=== PATIENT | male | born 1955 | race American Indian/Alaskan Native ===

== ENCOUNTER 2020-09-21 22:13 | Inpatient (IN) | payer MEDICAID ==
[~2020-09-21] VITALS: Ht 175.3 cm; Wt 139.7 kg
[2020-09-21] MEDS ORDERED: ipratropium/albuterol 3ml nebule NEB ONE (22:20)
[2020-09-21] MEDS ORDERED: methylPREDNISolone sod succ 125mg/2ml vial IV ONE (22:20)
[2020-09-21 22:47] LABS: BASOPHILS % (AUTO) 0.2 % (0-1); EOSINOPHILS % (AUTO) 0 % (0-6); HEMATOCRIT 40.2 % (42.0-52.0); HEMOGLOBIN 13.4 g/dl (14.0-17.9); LYMPHOCYTES # (AUTO) 1.3 X10'3 (1.1-4.8); LYMPHOCYTES % (AUTO) 6.8 % (21-51); MEAN CORPUSCULAR HEMOGLOBIN 32.1 PG (27.0-31.0); MEAN CORPUSCULAR HGB CONC 33.4 g/dL (33.0-36.5); MONOCYTES # (AUTO) 1.3 X10'3 (0-0.9); MONOCYTES % (AUTO) 6.5 % (2-12); NEUTROPHILS # (AUTO) 16.8 X10'3 (1.8-7.7); NEUTROPHILS % (AUTO) 86.5 % (42-75); PLATELET COUNT 126 X10'3 (140-440); RED BLOOD COUNT 4.19 X10'6 (4.70-6.10); RED CELL DISTRIBUTION WIDTH 15.3 % (11.5-14.5); WHITE BLOOD COUNT 19.4 X10'3 (4.5-11.0)
[2020-09-21] MEDS ORDERED: CefTRIAXone/D5W-Rocephin 1gm 50 ML IV ONE (23:05)
[2020-09-21] MEDS ORDERED: acetaminophen 325mg tablet PO ONE (23:05)
[2020-09-21] MEDS ORDERED: azithromycin/NS 500mg/250ml 250 ML IV ONE (23:05)
[2020-09-21] MEDS ORDERED: normal saline 1000ml 1,000 ML IV ONE (23:05)
[2020-09-21] MEDS ORDERED: albuterol 2.5 MG/3 ML nebule CONTNEB PRN (23:05)
[2020-09-21 23:21] LABS: ALANINE AMINOTRANSFERASE 120 U/L (12-78); ALBUMIN 2.8 G/DL (3.4-5.0); ALBUMIN/GLOBULIN RATIO 0.6 (1.1-1.5); ALKALINE PHOSPHATASE 121 IU/L (46-116); ANION GAP 20 (8-16); ASPARTATE AMINO TRANSFERASE 342 U/L (10-37); BILIRUBIN,TOTAL 2.1 MG/DL (0.1-1.0); BLOOD UREA NITROGEN 40 MG/DL (7-18); BUN/CREATININE RATIO 13.3 (5.4-32.0); CALCIUM 8.9 MG/DL (8.5-10.1); CHLORIDE 97 MMOL/L (99-107); GLUCOSE 224 MG/DL (70-104); POTASSIUM 4.7 MMOL/L (3.5-5.1); SODIUM 133 MMOL/L (135-145); TOTAL CARBON DIOXIDE 15.9 MMOL/L (24-32); TOTAL PROTEIN 7.8 G/DL (6.4-8.2); eGFR 21 ML/MIN
[2020-09-21] MEDS ORDERED: aspirin 81mg tab.chew PO ONE (23:30)
[2020-09-21 23:54] LABS: PLATELET ESTIMATE DECREASED; TOTAL CELLS COUNTED 100
[2020-09-22] VITALS (12 sets, daily range): BP systolic 89–115; BP diastolic 44–67
[2020-09-22] MEDS ORDERED: metroNIDAZOLE-Flagyl 500mg/NS 100 ML IV STA (00:35)
[2020-09-22] MEDS ORDERED: heparin 10,000 units/1 ML INJ IV ONE ×4 (00:35→15:05)
[2020-09-22] MEDS ORDERED: heparin 10,000 units/1 ML INJ IV PRN ×2 (00:35→15:05)
[2020-09-22] MEDS ORDERED: normal saline 1000ml 1,000 ML IV ONE (00:35)
[2020-09-22] MEDS ORDERED: VANCOMYCIN 1,500MG inj. 1,500 MG in normal saline 500ml IV soln 300 ML IV ONE (00:46)
[2020-09-22 00:53] LABS: CLARITY,URINE CLOUDY (Clear); COLOR,URINE YELLOW (Yellow); GLUCOSE, URINE 100 mg/dl (Neg); KETONES,URINE TRACE mg/dl (Neg); LEUKOCYTE ESTERASE ,URINE NEGATIVE (Neg); NITRITES, URINE NEGATIVE (Neg); OCCULT BLOOD,URINE LARGE (Neg); PROTEIN,URINE 100 mg/dl (Neg); UROBILINOGEN,URINE >=8.0 E.U/dL (0.2-1.0)
[2020-09-22 00:54] LABS: UA COLLECTION TYPE URINAL
[2020-09-22 00:56] LABS: PARTIAL THROMBOPLASTIN TIME 31 SECONDS (22-32)
[2020-09-22 00:59] LABS: ABG BASE EXCESS -13.2 mmol/L (-2.0-2.0); ABG HCO3 11.1 mmol/L (22.0-26.0); ABG OXYGEN SATURATION 95.2 % (94-97); ABG PCO2 (T) 22.7 mmHg (35.0-48.0); ABG PO2 (T) 83.5 mmHg (75.0-100.0); FCOHb 0.5 % (0.0-3.9); FMetHb 0.1 % (0.0-1.5); FO2Hb 94.6 % (94-97); PATIENT TEMPERATURE 36.8; TOTAL HEMOGLOBIN 12.9 G/dl (14.0-18.0)
[2020-09-22 01:02] LABS: AMORPHOUS URATES 2+; BACTERIA,URINE FEW /HPF (Neg); COARSE GRANULAR CAST 0-3 /LPF (NEGATIVE); RBC,URINE 0-2 /HPF (0-2); SQUAMOUS EPITHELIAL CELL,UR FEW /LPF (FEW); WBC,URINE 0-4 /HPF (0-4)
[2020-09-22] MEDS ORDERED: NORepinephrine inj. 8 MG in dextrose 5%-water 242 ML IV SCH (01:05)
[2020-09-22] MEDS: NORepinephrine 8mg/ 250ml NS 250 ML IV SCH ×3 (01:06→22:06)
[2020-09-22] MEDS: heparin 25,000 UNIT/250ml bag 250 ML IV SCH (01:08)
--- NOTE | 2020-09-22 01:08 | NUR ---
PT'S SON EARNESTINE [phone], PT'S EX AZUCENA [phone]
--- NOTE | 2020-09-22 02:12 | NUR ---
PT STABLE. SON AT BEDSIDE.
[2020-09-22 07:41] LABS: URINE AMPHETAMINE SCREEN POSITIVE (Neg); URINE BARBITUATE SCREEN NEGATIVE (Neg); URINE BENZODIAZEPINES SCREEN NEGATIVE (Neg); URINE CANNABINOID SCREEN NEGATIVE (Neg); URINE COCAINE SCREEN NEGATIVE (Neg); URINE METHADONE SCREEN NEGATIVE (Neg); URINE OPIATE SCREEN NEGATIVE (Neg); URINE PHENCYCLIDINE SCREEN NEGATIVE (Neg)
[2020-09-22 08:01] LABS: PARTIAL THROMBOPLASTIN TIME 69 SECONDS (22-32)
[2020-09-22] MEDS ORDERED: acetaminophen 325mg tablet PO PRN ×2 (08:05)
[2020-09-22] MEDS ORDERED: potassium Cl 40MEQ/1/2NS 520ml 520 ML IV PRN ×2 (08:05)
[2020-09-22] MEDS ORDERED: NOREPINEPHRINE BITARTRATE/D5W 250 ML IV PRN (08:05)
[2020-09-22] MEDS ORDERED: LIDOcaine 2% 10ml TOPICAL JELLY (Urojet) TP ONE (08:05)
[2020-09-22] MEDS ORDERED: ondansetron/PF 4mg/2ml inj IV PRN (08:05)
[2020-09-22] MEDS ORDERED: potassium Cl 20 mEq SR tablet PO PRN ×2 (08:05)
[2020-09-22] MEDS ORDERED: potassium Cl 40MEQ/250ML bag 270 ML IV PRN ×2 (08:05)
[2020-09-22] MEDS ORDERED: heparin 25,000 UNIT/250ml bag 250 ML IV SCH ×2 (08:05→15:05)
[2020-09-22] MEDS: normal saline 1000ml 1,000 ML IV SCH ×2 (08:42→22:23)
[2020-09-22] MEDS: famotidine/PF 10 mg/ml inj IV SCH ×2 (08:43→20:36)
[2020-09-22 09:15] LABS: TOTAL PROTEIN,URINE RANDOM 251.7 MG/DL
[2020-09-22] MEDS ORDERED: NATE120T6 PO (09:19)
[2020-09-22 09:42] LABS: BASOPHILS % (AUTO) 0 % (0-1); EOSINOPHILS % (AUTO) 0.1 % (0-6); HEMATOCRIT 37.7 % (42.0-52.0); HEMOGLOBIN 12.6 g/dl (14.0-17.9); LYMPHOCYTES # (AUTO) 0.5 X10'3 (1.1-4.8); LYMPHOCYTES % (AUTO) 2.5 % (21-51); MEAN CORPUSCULAR HEMOGLOBIN 31.8 PG (27.0-31.0); MEAN CORPUSCULAR HGB CONC 33.3 g/dL (33.0-36.5); MEAN CORPUSCULAR VOLUME 95.3 FL (78-98); MEAN PLATELET VOLUME 8.2 FL (7.4-10.4); MONOCYTES # (AUTO) 0.9 X10'3 (0-0.9); MONOCYTES % (AUTO) 4.7 % (2-12); NEUTROPHILS # (AUTO) 18.3 X10'3 (1.8-7.7); NEUTROPHILS % (AUTO) 92.7 % (42-75); PLATELET COUNT 73 X10'3 (140-440); RED BLOOD COUNT 3.95 X10'6 (4.70-6.10); RED CELL DISTRIBUTION WIDTH 15.5 % (11.5-14.5); WHITE BLOOD COUNT 19.7 X10'3 (4.5-11.0)
[2020-09-22 09:48] LABS: UA EOSINOPHILS NO EOS /HPF
[2020-09-22] MEDS: albuterol 2.5 MG/3 ML nebule NEB PRN (10:04)
[2020-09-22 10:06] LABS: ANISOCYTOSIS 1+; PLATELET ESTIMATE DECREASED; TOTAL CELLS COUNTED 100
[2020-09-22] MEDS ORDERED: SILD100T70 PO (10:50)
[2020-09-22] MEDS ORDERED: ARIP400S2 IM (10:50)
[2020-09-22] MEDS ORDERED: ALOG12.52 PO (10:50)
[2020-09-22] MEDS ORDERED: DOCU-342 PO (10:50)
[2020-09-22] MEDS ORDERED: CHOL500050 PO (10:50)
[2020-09-22] MEDS ORDERED: QUET100T34 PO (10:50)
[2020-09-22] MEDS ORDERED: LISI-790 PO (10:50)
[2020-09-22] MEDS ORDERED: ASPI-1397 PO (10:50)
[2020-09-22] MEDS ORDERED: NAPR-996 PO (10:50)
[2020-09-22] MEDS ORDERED: GABA300C PO ×2 (10:50)
[2020-09-22] MEDS ORDERED: DULA1.5P SQ (10:50)
[2020-09-22] MEDS ORDERED: ATOR20TA66 PO (10:50)
[2020-09-22] MEDS ORDERED: FAMO40TA8 PO (10:50)
[2020-09-22] MEDS ORDERED: METF-900 PO (10:50)
--- NOTE | 2020-09-22 11:58 | NUR ---
Dr Angulo and Dr Reuben foster
[2020-09-22] MEDS ORDERED: PERFLUTREN PROTEIN-A MICROSPHR (Optison) 0.22 MG/ML 3ML VIAL IV ONE (14:25)
[2020-09-22] MEDS ORDERED: Dulaglutide (Trulicity) 0.5 ML INJ SQ SCH (15:30)
[2020-09-22] MEDS ORDERED: non-formulary drug (Sildenafil Citrate 1 TAB) PO PRN (15:30)
[2020-09-22 16:50] LABS: LYMPHOCYTES # (AUTO) 0.4 X10'3 (1.1-4.8); MEAN CORPUSCULAR HEMOGLOBIN 32.4 PG (27.0-31.0)
[2020-09-22 16:52] LABS: BASOPHILS % (AUTO) 0.1 % (0-1); EOSINOPHILS % (AUTO) 0 % (0-6); HEMATOCRIT 39.3 % (42.0-52.0); LYMPHOCYTES % (AUTO) 2.7 % (21-51); MEAN PLATELET VOLUME 8.4 FL (7.4-10.4); MONOCYTES # (AUTO) 0.8 X10'3 (0-0.9); MONOCYTES % (AUTO) 5.3 % (2-12); NEUTROPHILS # (AUTO) 14.2 X10'3 (1.8-7.7); NEUTROPHILS % (AUTO) 91.9 % (42-75); PLATELET COUNT 75 X10'3 (140-440); RED BLOOD COUNT 4.01 X10'6 (4.70-6.10); RED CELL DISTRIBUTION WIDTH 15.7 % (11.5-14.5); WHITE BLOOD COUNT 15.4 X10'3 (4.5-11.0)
[2020-09-22] MEDS ORDERED: MESSAGE TO PHARMACY PO ONE (18:15)
[2020-09-22] MEDS ORDERED: glucagon, human recombinant 1mg kit SUBCUT PRN (18:15)
[2020-09-22] MEDS ORDERED: dextrose 50%-water 50ml dispensing syringe IV PRN ×2 (18:15)
[2020-09-22] MEDS ORDERED: dextrose ORAL solution 15 GM/59 ML bottle PO PRN ×2 (18:15)
--- NOTE | 2020-09-22 18:30 | NUR ---
Patient in room ICU 2044. I have received report from BRITTANY Pang and had the opportunity to ask questions and assume patient care. Patient is laying in bed restless and confused, trying to use his phone, I was able to redirect him and had him put phone away. I will continue to monitor.
[2020-09-22] MEDS: docusate sod 100mg capsule PO SCH ×2 (20:00)
[2020-09-22 20:36] LABS: BASOPHILS # (AUTO) 0.1 X10'3 (0-0.2); BASOPHILS % (AUTO) 0.5 % (0-1); EOSINOPHILS % (AUTO) 0 % (0-6); HEMOGLOBIN 13.4 g/dl (14.0-17.9); LYMPHOCYTES # (AUTO) 0.5 X10'3 (1.1-4.8); LYMPHOCYTES % (AUTO) 3.2 % (21-51); MEAN CORPUSCULAR HEMOGLOBIN 31.9 PG (27.0-31.0); MEAN CORPUSCULAR HGB CONC 33.5 g/dL (33.0-36.5); MEAN CORPUSCULAR VOLUME 95.3 FL (78-98); MEAN PLATELET VOLUME 8.4 FL (7.4-10.4); MONOCYTES # (AUTO) 0.7 X10'3 (0-0.9); MONOCYTES % (AUTO) 4.6 % (2-12); NEUTROPHILS # (AUTO) 13.2 X10'3 (1.8-7.7); NEUTROPHILS % (AUTO) 91.7 % (42-75); PLATELET COUNT 75 X10'3 (140-440); RED CELL DISTRIBUTION WIDTH 14.9 % (11.5-14.5); WHITE BLOOD COUNT 14.4 X10'3 (4.5-11.0)
[2020-09-22] MEDS: atorvastatin 20mg tablet PO SCH (20:36)
[2020-09-22] MEDS: gabapentin 300mg capsule PO SCH (20:36)
[2020-09-22] MEDS: quetiapine 100mg tablet PO SCH (20:39)
[2020-09-22] MEDS: insulin glargine (Lantus) pen - multi-dose SQ SCH (20:47)
[2020-09-22] MEDS: insulin Lispro (HumaLOG) vial - multi-dose SQ SCH (20:48)
[2020-09-22 21:03] LABS: ALANINE AMINOTRANSFERASE 155 U/L (12-78); ALBUMIN 2.4 G/DL (3.4-5.0); ALBUMIN/GLOBULIN RATIO 0.5 (1.1-1.5); ALKALINE PHOSPHATASE 94 IU/L (46-116); ANION GAP 18 (8-16); ASPARTATE AMINO TRANSFERASE 372 U/L (10-37); BLOOD UREA NITROGEN 57 MG/DL (7-18); BUN/CREATININE RATIO 21.4 (5.4-32.0); CALCIUM 7.7 MG/DL (8.5-10.1); CHLORIDE 101 MMOL/L (99-107); CREATININE 2.66 MG/DL (0.60-1.10); GLUCOSE 275 MG/DL (70-104); MAGNESIUM 1.5 MG/DL (1.5-2.4); PHOSPHORUS 6.7 MG/DL (2.3-4.5); POTASSIUM 5.5 MMOL/L (3.5-5.1); SODIUM 133 MMOL/L (135-145); TOTAL PROTEIN 6.9 G/DL (6.4-8.2); eGFR 24 ML/MIN
--- NOTE | 2020-09-22 21:04 | NUR ---
Patient in room ICU 2044. I have received report from Tiffanie SOTO and had the opportunity to ask questions and assume patient care.
[2020-09-22 21:22] LABS: TOTAL CARBON DIOXIDE 14.5 MMOL/L (24-32)
--- NOTE | 2020-09-22 21:30 | NUR ---
Problems reprioritized. Patient report given, questions answered & plan of care reviewed with BRITTANY Mckeon.
[2020-09-22 23:53] LABS: ABG BASE EXCESS -9.4 mmol/L (-2.0-2.0); ABG HCO3 13.4 mmol/L (22.0-26.0); ABG OXYGEN SATURATION 96.1 % (94-97); ABG PCO2 (T) 21.5 mmHg (35.0-48.0); ABG PO2 (T) 76.7 mmHg (75.0-100.0); ALLEN'S TEST POSITIVE; FCOHb 0.3 % (0.0-3.9); FMetHb 0.2 % (0.0-1.5); FO2Hb 95.6 % (94-97); PATIENT TEMPERATURE 36.6; TOTAL HEMOGLOBIN 12.5 G/dl (14.0-18.0)
[2020-09-23] VITALS (24 sets, daily range): BP systolic 78–164; BP diastolic 44–89
[2020-09-23] MEDS: CefTRIAXone 2gm/D5W 50ml BAG 50 ML IV SCH ×2 (00:07→08:41)
[2020-09-23] MEDS ORDERED: LORazepam 2 mg/ml vial IV PRN (00:25)
[2020-09-23] MEDS ORDERED: thiamine inj. 100 MG in normal saline 100ml IV soln 100 ML IV ONE (00:25)
[2020-09-23] MEDS: dexmedetomidin/NS 400mcg/100ml 100 ML IV SCH ×4 (00:52→20:25)
--- NOTE | 2020-09-23 02:01 | NUR ---
when i assumed care of pt heparin was running @ 873ml/hr CRn and myself rounded the gtt to 900ml/hr per protocol
[2020-09-23] MEDS: heparin 25,000 UNIT/250ml bag 250 ML IV SCH (02:04)
[2020-09-23] MEDS ORDERED: ringers solution, lacted 1,000 ML IV ONE (04:40)
--- NOTE | 2020-09-23 04:47 | NUR ---
Pt has been very verbally abusive to myself and the GIS SPECIALIST. Cursing swearing, attempting to climb out of bed, pulling on iv lines, bp cuff cords as well his bello catheter. Called MD Salas this evening at approx 2130 updated him on pts + blc, etoh history, and critical lab value CO2 of 14.5 at that time. Md inputted orders for Etoh protocol and IV abx. Another call was made shortly after midnight to update MD regarding pt continued to verbally curse the staff, yelling, threatening and attempting to try and get out of bed as well as still pulling on lines and tubes. Received MD order for Precedex gtt to start @ 0.4mcg/kg/hr with titration protocol orders. Pt Precedex is running at 0.8mcg/kg/hr currently and pt is awake, verbal, disoriented but calm. Bp 103/69 HR 94 Spo2 96 RA RR 20 temp 36.9.
[2020-09-23 05:27] LABS: ABG BASE EXCESS -8.7 mmol/L (-2.0-2.0); ABG HCO3 14.2 mmol/L (22.0-26.0); ABG OXYGEN SATURATION 94.7 % (94-97); ABG PCO2 (T) 23.1 mmHg (35.0-48.0); ABG PO2 (T) 75.4 mmHg (75.0-100.0); ALLEN'S TEST POSITIVE; FCOHb 0.1 % (0.0-3.9); FMetHb 0.1 % (0.0-1.5); FO2Hb 94.5 % (94-97); PATIENT TEMPERATURE 36.9; TOTAL HEMOGLOBIN 11.9 G/dl (14.0-18.0)
[2020-09-23 06:12] LABS: BASOPHILS % (AUTO) 0.3 % (0-1); EOSINOPHILS % (AUTO) 0.1 % (0-6); HEMATOCRIT 31.6 % (42.0-52.0); HEMOGLOBIN 10.4 g/dl (14.0-17.9); LYMPHOCYTES # (AUTO) 0.5 X10'3 (1.1-4.8); LYMPHOCYTES % (AUTO) 4.5 % (21-51); MEAN CORPUSCULAR HEMOGLOBIN 31.8 PG (27.0-31.0); MEAN CORPUSCULAR HGB CONC 32.9 g/dL (33.0-36.5); MEAN CORPUSCULAR VOLUME 96.7 FL (78-98); MEAN PLATELET VOLUME 8.7 FL (7.4-10.4); MONOCYTES % (AUTO) 8.4 % (2-12); NEUTROPHILS # (AUTO) 10.4 X10'3 (1.8-7.7); NEUTROPHILS % (AUTO) 86.7 % (42-75); PLATELET COUNT 77 X10'3 (140-440); RED BLOOD COUNT 3.27 X10'6 (4.70-6.10); RED CELL DISTRIBUTION WIDTH 15.8 % (11.5-14.5)
[2020-09-23 06:23] LABS: ALANINE AMINOTRANSFERASE 121 U/L (12-78); ALBUMIN/GLOBULIN RATIO 0.5 (1.1-1.5); ALKALINE PHOSPHATASE 81 IU/L (46-116); ANION GAP 16 (8-16); ASPARTATE AMINO TRANSFERASE 275 U/L (10-37); BILIRUBIN,TOTAL 1.6 MG/DL (0.1-1.0); BLOOD UREA NITROGEN 63 MG/DL (7-18); BUN/CREATININE RATIO 27.2 (5.4-32.0); CALCIUM 7.2 MG/DL (8.5-10.1); CHLORIDE 105 MMOL/L (99-107); CREATININE 2.32 MG/DL (0.60-1.10); GLUCOSE 151 MG/DL (70-104); MAGNESIUM 1.7 MG/DL (1.5-2.4); PHOSPHORUS 5.3 MG/DL (2.3-4.5); POTASSIUM 4.9 MMOL/L (3.5-5.1); SODIUM 136 MMOL/L (135-145); TOTAL CARBON DIOXIDE 15.2 MMOL/L (24-32); TOTAL PROTEIN 6.1 G/DL (6.4-8.2); eGFR 29 ML/MIN
--- NOTE | 2020-09-23 06:23 | NUR ---
Problems reprioritized. Patient report given, questions answered & plan of care reviewed with Natalie SOTO.
[2020-09-23] MEDS ORDERED: albumin (Human) 5% 250ml 500 ML IV ONE (07:49)
[2020-09-23] MEDS ORDERED: albumin (Human) 5% 250ml 250 ML IV ONE ×3 (07:55→10:25)
[2020-09-23] MEDS ORDERED: aspirin 81mg tablet.DR PO SCH (08:00)
[2020-09-23] MEDS: lisinopril 5mg tablet PO SCH (08:00)
[2020-09-23] MEDS: docusate sod 100mg capsule PO SCH ×4 (08:00→19:37)
[2020-09-23] MEDS ORDERED: METFORMIN HCL PO SCH (08:00)
[2020-09-23] MEDS: linagliptin 5mg tablet PO SCH (08:00)
[2020-09-23] MEDS ORDERED: gabapentin 300mg capsule PO SCH (08:00)
[2020-09-23] MEDS ORDERED: folic acid inj. 2 MG, thiamine inj. 100 MG, MVI, adult No.4 with vit. K 10 ML in dextro... IV SCH ×4 (08:00)
[2020-09-23] MEDS: cholecalciferol (vitamin D3) 1,000 unit (25mcg) tablet PO SCH (08:00)
[2020-09-23] MEDS ORDERED: nateglinide 60mg tablet PO SCH (08:00)
[2020-09-23] MEDS ORDERED: famotidine 20mg tablet PO SCH (08:00)
[2020-09-23] MEDS: folic acid 1mg/0.2ml inj IV SCH (08:12)
[2020-09-23] MEDS: thiamine inj. 100 MG in normal saline 100ml IV soln 100 ML IV SCH (08:15)
[2020-09-23] MEDS: NORepinephrine 8mg/ 250ml NS 250 ML IV SCH ×2 (08:40→19:06)
[2020-09-23] MEDS: famotidine/PF 10 mg/ml inj IV SCH ×2 (08:57→19:36)
[2020-09-23 09:16] LABS: TOTAL CELLS COUNTED 100
[2020-09-23 09:21] LABS: CHOL/HDL RATIO 8.4 (0.00-4.99); CHOLESTEROL 92 MG/DL (0-200); HDL CHOLESTEROL 11 MG/DL (35-60); LDL CHOLESTEROL 41 MG/DL (50-100); TRIGLYCERIDES 168 MG/DL (20-135)
[2020-09-23] MEDS: vancomycin/NS 1 GM ADD-VANTAGE 250 ML IV SCH ×2 (09:24→11:51)
[2020-09-23 09:38] LABS: PLATELET ESTIMATE DECREASED
[2020-09-23 09:42] LABS: POLYCHROMASIA FEW
[2020-09-23] MEDS: albuterol 2.5 MG/3 ML nebule NEB PRN (10:14)
[2020-09-23] MEDS: piperacillin/tazo 4.5gm/100ml 100 ML IV SCH ×3 (11:51→23:51)
[2020-09-23] MEDS: normal saline 1000ml 1,000 ML IV SCH ×3 (11:52→22:46)
--- NOTE | 2020-09-23 12:01 | NUR ---
Initial: Pt admit DX sepsis, PNA, NSTEMI, acute renal failure, etoh on withdrawal protocol, positive for meth, lactic acidosis, metabolic acidosis and respiratory alkalosis per MD note. Currently NPO at this time per MD. LBM 09/22. MAP 68 this AM receiving levophed per RN. Pt hx T2DM A1C 8.0 w/ TG 168 on admit; would benefit from DM/HH diet eds once stable prior to discharge. Will monitor for PO diet advancement and tolerance this admit. Rec: 1. advance diet as medically indicated to carb controlled/heart healthy 2. monitor for ONS needs once PO diet advances 3. routine bowel care 4. scaled wt this admit; subsequent weekly wts 5. DM/HH diet eds once more stable prior to discharge Addendum: 09/23/20 at [address] Amended: Links added.
[2020-09-23] MEDS: gabapentin 300mg capsule PO SCH ×2 (12:10→19:37)
[2020-09-23] MEDS: heparin 10,000 units/1 ML INJ IV PRN ×2 (12:30→23:46)
[2020-09-23] MEDS: insulin Lispro (HumaLOG) vial - multi-dose SQ SCH (12:56)
[2020-09-23] MEDS: aspirin 300mg supp.rect RC SCH (13:32)
--- NOTE | 2020-09-23 18:30 | NUR ---
Patient in room ICU 2044. I have received report from Jacob, and had the opportunity to ask questions and assume patient care.
[2020-09-23] MEDS: LORazepam 2 mg/ml vial IV PRN ×2 (19:17→23:33)
--- NOTE | 2020-09-23 19:25 | NUR ---
patient became very violent. Ativan 2mg/IV administered. Precedex at rate of .6. BP is 107/61, O2 rate is 94% and RR of 18.
[2020-09-23] MEDS: quetiapine 100mg tablet PO SCH (19:37)
[2020-09-23] MEDS: atorvastatin 20mg tablet PO SCH (19:37)
[2020-09-23] MEDS: insulin glargine (Lantus) pen - multi-dose SQ SCH (21:48)
[2020-09-24] VITALS (24 sets, daily range): BP systolic 78–138; BP diastolic 43–100
[2020-09-24] MEDS: NORepinephrine 8mg/ 250ml NS 250 ML IV SCH ×2 (02:17→16:06)
[2020-09-24] MEDS: heparin 25,000 UNIT/250ml bag 250 ML IV SCH ×2 (03:13→22:12)
[2020-09-24] MEDS: LORazepam 2 mg/ml vial IV PRN ×2 (04:03→19:10)
[2020-09-24 04:04] LABS: ALANINE AMINOTRANSFERASE 116 U/L (12-78); ALBUMIN 2.3 G/DL (3.4-5.0); ALBUMIN/GLOBULIN RATIO 0.6 (1.1-1.5); ALKALINE PHOSPHATASE 85 IU/L (46-116); ANION GAP 15 (8-16); ASPARTATE AMINO TRANSFERASE 201 U/L (10-37); BILIRUBIN,TOTAL 1.7 MG/DL (0.1-1.0); BLOOD UREA NITROGEN 67 MG/DL (7-18); BUN/CREATININE RATIO 31.2 (5.4-32.0); CALCIUM 6.6 MG/DL (8.5-10.1); CHLORIDE 109 MMOL/L (99-107); CREATININE 2.15 MG/DL (0.60-1.10); GLUCOSE 155 MG/DL (70-104); MAGNESIUM 1.6 MG/DL (1.5-2.4); PHOSPHORUS 4.7 MG/DL (2.3-4.5); POTASSIUM 4.9 MMOL/L (3.5-5.1); SODIUM 140 MMOL/L (135-145); TOTAL CARBON DIOXIDE 15.6 MMOL/L (24-32); TOTAL PROTEIN 6.3 G/DL (6.4-8.2); eGFR 31 ML/MIN
[2020-09-24 04:07] LABS: BASOPHILS % (AUTO) 0.4 % (0-1); EOSINOPHILS % (AUTO) 0.2 % (0-6); HEMOGLOBIN 10.8 g/dl (14.0-17.9); LYMPHOCYTES # (AUTO) 0.7 X10'3 (1.1-4.8); LYMPHOCYTES % (AUTO) 7.8 % (21-51); MEAN CORPUSCULAR HEMOGLOBIN 32.1 PG (27.0-31.0); MEAN CORPUSCULAR HGB CONC 33.6 g/dL (33.0-36.5); MEAN CORPUSCULAR VOLUME 95.6 FL (78-98); MEAN PLATELET VOLUME 8.4 FL (7.4-10.4); MONOCYTES # (AUTO) 0.8 X10'3 (0-0.9); NEUTROPHILS # (AUTO) 6.9 X10'3 (1.8-7.7); NEUTROPHILS % (AUTO) 82.6 % (42-75); PLATELET COUNT 71 X10'3 (140-440); RED BLOOD COUNT 3.35 X10'6 (4.70-6.10); RED CELL DISTRIBUTION WIDTH 16.2 % (11.5-14.5); WHITE BLOOD COUNT 8.4 X10'3 (4.5-11.0)
[2020-09-24] MEDS: dexmedetomidin/NS 400mcg/100ml 100 ML IV SCH ×5 (04:29→22:15)
[2020-09-24] MEDS: normal saline 1000ml 1,000 ML IV SCH ×4 (05:14→23:26)
[2020-09-24 05:22] LABS: TROPONIN I 5.77 NG/ML (0.0-0.05)
--- NOTE | 2020-09-24 05:24 | NUR ---
Lab called for an elevated troponin being 5+. is aware of elevated troponin, according to him, the elevated troponin related to patient's meth use.
--- NOTE | 2020-09-24 05:26 | NUR ---
Patient seen by overnight babysitter acidity tester, Dr. Saals. Chest x-ray ordered for this morning. Ordered to continue medical management. Patient is on Levophed 0.05, Heparin at 1400 units/hr, Precedex at rate of 0.6. MAP has been above 60. Patient has Ativan 2mg Q1hr PRN for agitation. Sitter at the bedside. Addendum: 09/24/20 at 0531 by Marielle Morocho RN Patient is very combative, rude, violent, non-compliant.
--- NOTE | 2020-09-24 05:47 | NUR ---
Patient repositioned to the left, No Bowel movement. Not under any distress. Sitter at the bedside.
--- NOTE | 2020-09-24 06:21 | NUR ---
Problems reprioritized. Patient report given, questions answered & plan of care reviewed with Latrell.
[2020-09-24] MEDS ORDERED: normal saline 500ml IV soln 500 ML IV ONE ×2 (07:40→09:45)
[2020-09-24] MEDS: cholecalciferol (vitamin D3) 1,000 unit (25mcg) tablet PO SCH (08:00)
[2020-09-24] MEDS: linagliptin 5mg tablet PO SCH (08:00)
[2020-09-24] MEDS ORDERED: vancomycin/NS 1 GM ADD-VANTAGE 250 ML IV SCH (08:00)
[2020-09-24] MEDS: docusate sod 100mg capsule PO SCH ×2 (08:00→19:22)
[2020-09-24] MEDS: lisinopril 5mg tablet PO SCH (08:00)
[2020-09-24] MEDS: gabapentin 300mg capsule PO SCH ×2 (08:00→19:22)
[2020-09-24 08:22] LABS: CLARITY,URINE CLOUDY (Clear); COLOR,URINE YELLOW (Yellow); GLUCOSE, URINE NEGATIVE (Neg); KETONES,URINE TRACE mg/dl (Neg); LEUKOCYTE ESTERASE ,URINE NEGATIVE (Neg); NITRITES, URINE NEGATIVE (Neg); OCCULT BLOOD,URINE LARGE (Neg); PH,URINE 5.5 (4.8-8.0); PROTEIN,URINE 30 mg/dl (Neg)
[2020-09-24 08:24] LABS: UA COLLECTION TYPE NON-SPECIFIED
[2020-09-24 08:30] LABS: WBC,URINE 0-4 /HPF (0-4)
[2020-09-24 08:31] LABS: RBC,URINE 20-50 /HPF (0-2)
[2020-09-24 08:32] LABS: AMORPHOUS URATES 4+; MUCUS STRANDS FEW /LPF (Neg); SQUAMOUS EPITHELIAL CELL,UR FEW /LPF (FEW)
[2020-09-24 08:35] LABS: BACTERIA,URINE FEW /HPF (Neg)
[2020-09-24] MEDS: thiamine inj. 100 MG in normal saline 100ml IV soln 100 ML IV SCH (09:17)
[2020-09-24] MEDS: famotidine/PF 10 mg/ml inj IV SCH ×2 (09:18→19:22)
[2020-09-24] MEDS: folic acid 1mg/0.2ml inj IV SCH (09:18)
[2020-09-24] MEDS: piperacillin/tazo 4.5gm/100ml 100 ML IV SCH ×3 (09:21→23:14)
[2020-09-24] MEDS: aspirin 300mg supp.rect RC SCH (09:39)
[2020-09-24] MEDS: insulin Lispro (HumaLOG) vial - multi-dose SQ SCH (09:51)
--- NOTE | 2020-09-24 15:50 | NUR ---
Patient in room ICU 2044. I have received report from Marylin SOTO and had the opportunity to ask questions and assume patient care. Addendum: 09/24/20 at 1614 by Akosua Quijano RN Charting from previous nurse Mayrlin SOTO on this shift to be charted.
--- NOTE | 2020-09-24 18:22 | NUR ---
Problems reprioritized. Patient report given, questions answered & plan of care reviewed with Marielle SOTO.
[2020-09-24] MEDS: OLANZapine **IM** 10 mg inj. IM SCH (18:48)
[2020-09-24] MEDS: atorvastatin 20mg tablet PO SCH (19:22)
[2020-09-24] MEDS: insulin glargine (Lantus) pen - multi-dose SQ SCH (21:12)
[2020-09-25] VITALS (23 sets, daily range): BP systolic 91–120; BP diastolic 53–75
[2020-09-25] MEDS ORDERED: LORazepam 1 MG tablet PO PRN (00:25)
[2020-09-25] MEDS: LORazepam 2 mg/ml vial IV PRN ×4 (02:06→22:43)
[2020-09-25] MEDS: NORepinephrine 8mg/ 250ml NS 250 ML IV SCH ×3 (02:11→23:36)
[2020-09-25] MEDS: dexmedetomidin/NS 400mcg/100ml 100 ML IV SCH ×6 (02:20→21:58)
[2020-09-25] MEDS: insulin Lispro (HumaLOG) vial - multi-dose SQ SCH ×4 (02:52→20:40)
--- NOTE | 2020-09-25 03:00 | NUR ---
Oral care completed. Patient reposition.
[2020-09-25 05:47] LABS: ALANINE AMINOTRANSFERASE 113 U/L (12-78); ALBUMIN 2.2 G/DL (3.4-5.0); ALBUMIN/GLOBULIN RATIO 0.5 (1.1-1.5); ALKALINE PHOSPHATASE 97 IU/L (46-116); ASPARTATE AMINO TRANSFERASE 154 U/L (10-37); BILIRUBIN,TOTAL 1.8 MG/DL (0.1-1.0); BLOOD UREA NITROGEN 57 MG/DL (7-18); BUN/CREATININE RATIO 34.3 (5.4-32.0); CALCIUM 6.5 MG/DL (8.5-10.1); CREATININE 1.66 MG/DL (0.60-1.10); GLUCOSE 182 MG/DL (70-104); MAGNESIUM 1.7 MG/DL (1.5-2.4); PHOSPHORUS 3.7 MG/DL (2.3-4.5); TOTAL PROTEIN 6.6 G/DL (6.4-8.2); eGFR 42 ML/MIN
[2020-09-25 05:50] LABS: TOTAL CARBON DIOXIDE 14.7 MMOL/L (24-32)
[2020-09-25] MEDS: normal saline 1000ml 1,000 ML IV SCH ×2 (05:51→12:59)
[2020-09-25 05:55] LABS: ANION GAP 16 (8-16); CHLORIDE 114 MMOL/L (99-107); POTASSIUM 4.6 MMOL/L (3.5-5.1); SODIUM 145 MMOL/L (135-145)
[2020-09-25] MEDS: heparin 10,000 units/1 ML INJ IV PRN (06:00)
[2020-09-25 06:06] LABS: BASOPHILS % (AUTO) 0.3 % (0-1); EOSINOPHILS % (AUTO) 0.5 % (0-6); HEMATOCRIT 34.2 % (42.0-52.0); HEMOGLOBIN 11.2 g/dl (14.0-17.9); LYMPHOCYTES % (AUTO) 13.1 % (21-51); MEAN CORPUSCULAR HEMOGLOBIN 31.8 PG (27.0-31.0); MEAN CORPUSCULAR HGB CONC 32.8 g/dL (33.0-36.5); MEAN CORPUSCULAR VOLUME 97.1 FL (78-98); MEAN PLATELET VOLUME 8.1 FL (7.4-10.4); MONOCYTES # (AUTO) 1.1 X10'3 (0-0.9); MONOCYTES % (AUTO) 14.4 % (2-12); NEUTROPHILS # (AUTO) 5.3 X10'3 (1.8-7.7); NEUTROPHILS % (AUTO) 71.7 % (42-75); PLATELET COUNT 83 X10'3 (140-440); RED BLOOD COUNT 3.52 X10'6 (4.70-6.10); RED CELL DISTRIBUTION WIDTH 16.5 % (11.5-14.5); WHITE BLOOD COUNT 7.3 X10'3 (4.5-11.0)
--- NOTE | 2020-09-25 06:24 | NUR ---
Problems reprioritized. Patient report given, questions answered & plan of care reviewed with Chichi.
--- NOTE | 2020-09-25 07:15 | NUR ---
Patient in room ICU 2044. I have received report from BRITTANY SMITH, and had the opportunity to ask questions and assume patient care.
--- NOTE | 2020-09-25 07:25 | NUR ---
pt's temp 38.0 MD jerri aware, no new orders, will continue to monitor.
[2020-09-25] MEDS ORDERED: VANCOMYCIN LEVEL IV ONE (07:30)
[2020-09-25] MEDS: gabapentin 300mg capsule PO SCH ×2 (08:00→18:58)
[2020-09-25] MEDS: docusate sod 100mg capsule PO SCH ×2 (08:00→18:58)
[2020-09-25] MEDS: lisinopril 5mg tablet PO SCH (08:00)
[2020-09-25] MEDS: linagliptin 5mg tablet PO SCH (08:00)
[2020-09-25] MEDS: OLANZapine **IM** 10 mg inj. IM SCH ×2 (08:14→20:21)
[2020-09-25] MEDS: thiamine inj. 100 MG in normal saline 100ml IV soln 100 ML IV SCH (08:16)
[2020-09-25] MEDS: piperacillin/tazo 4.5gm/100ml 100 ML IV SCH ×2 (08:20→16:31)
[2020-09-25] MEDS: famotidine/PF 10 mg/ml inj IV SCH ×2 (08:33→20:21)
[2020-09-25] MEDS: folic acid 1mg/0.2ml inj IV SCH (08:41)
[2020-09-25] MEDS: aspirin 300mg supp.rect RC SCH (08:45)
[2020-09-25] MEDS: cholecalciferol (vitamin D3) 1,000 unit (25mcg) tablet PO SCH (09:56)
[2020-09-25] MEDS ORDERED: clindamycin 600mg/D5W 50ml 50 ML IV ONE (13:15)
[2020-09-25] MEDS: sodium bicarbonate (8.4%) inj. 100 MEQ in dextrose 5%-water 1,000 ML IV SCH (14:55)
--- NOTE | 2020-09-25 15:00 | NUR ---
NOTIFIED DR. CASSANDRA AMBROCIO BLISTERS ON R HAND. ORDERS TO DECREASE NS TO 50 ML/HR. WILL CONTINUE TO MONITOR. Addendum: 09/25/20 at 1820 by Michelle Montemayor RN MD also notified of BUE edema - no new orders. Will continue to monitor.
--- NOTE | 2020-09-25 18:20 | NUR ---
Orientee documentation: I have reviewed and agree with all interventions, assessments performed and documented by BRITTANY Cantu.
--- NOTE | 2020-09-25 18:31 | NUR ---
Problems reprioritized. Patient report given, questions answered & plan of care reviewed with BRITTANY RUTHERFORD.
[2020-09-25] MEDS: atorvastatin 20mg tablet PO SCH (18:58)
[2020-09-25] MEDS: insulin glargine (Lantus) pen - multi-dose SQ SCH (20:39)
[2020-09-25] MEDS: enoxaparin 40mg/0.4ml syringe SUBCUT SCH (21:30)
[2020-09-26] VITALS (24 sets, daily range): BP systolic 90–161; BP diastolic 49–95
[2020-09-26] MEDS: LORazepam 2 mg/ml vial IV PRN ×6 (00:44→19:51)
[2020-09-26] MEDS: piperacillin/tazo 4.5gm/100ml 100 ML IV SCH ×4 (00:45→23:21)
[2020-09-26] MEDS: sodium bicarbonate (8.4%) inj. 100 MEQ in dextrose 5%-water 1,000 ML IV SCH ×3 (01:41→23:29)
[2020-09-26] MEDS: insulin Lispro (HumaLOG) vial - multi-dose SQ SCH ×3 (02:43→13:35)
[2020-09-26 02:57] LABS: BASOPHILS % (AUTO) 0.3 % (0-1); EOSINOPHILS # (AUTO) 0.1 X10'3 (0-0.9); EOSINOPHILS % (AUTO) 1.4 % (0-6); HEMATOCRIT 32.4 % (42.0-52.0); HEMOGLOBIN 10.7 g/dl (14.0-17.9); LYMPHOCYTES # (AUTO) 1.1 X10'3 (1.1-4.8); LYMPHOCYTES % (AUTO) 20.3 % (21-51); MEAN CORPUSCULAR HEMOGLOBIN 31.8 PG (27.0-31.0); MEAN CORPUSCULAR HGB CONC 32.9 g/dL (33.0-36.5); MEAN CORPUSCULAR VOLUME 96.7 FL (78-98); MEAN PLATELET VOLUME 7.6 FL (7.4-10.4); MONOCYTES # (AUTO) 0.9 X10'3 (0-0.9); MONOCYTES % (AUTO) 16.5 % (2-12); NEUTROPHILS # (AUTO) 3.3 X10'3 (1.8-7.7); NEUTROPHILS % (AUTO) 61.5 % (42-75); PLATELET COUNT 90 X10'3 (140-440); RED BLOOD COUNT 3.36 X10'6 (4.70-6.10); WHITE BLOOD COUNT 5.4 X10'3 (4.5-11.0)
[2020-09-26 03:52] LABS: ALANINE AMINOTRANSFERASE 95 U/L (12-78); ALBUMIN 1.9 G/DL (3.4-5.0); ALBUMIN/GLOBULIN RATIO 0.4 (1.1-1.5); ALKALINE PHOSPHATASE 96 IU/L (46-116); ANION GAP 9 (8-16); ASPARTATE AMINO TRANSFERASE 109 U/L (10-37); BILIRUBIN,TOTAL 1.4 MG/DL (0.1-1.0); BLOOD UREA NITROGEN 49 MG/DL (7-18); BUN/CREATININE RATIO 35.5 (5.4-32.0); CALCIUM 6.4 MG/DL (8.5-10.1); CHLORIDE 117 MMOL/L (99-107); CREATININE 1.38 MG/DL (0.60-1.10); GLUCOSE 186 MG/DL (70-104); MAGNESIUM 1.5 MG/DL (1.5-2.4); PHOSPHORUS 2.9 MG/DL (2.3-4.5); POTASSIUM 4.2 MMOL/L (3.5-5.1); SODIUM 146 MMOL/L (135-145); TOTAL CARBON DIOXIDE 19.6 MMOL/L (24-32); TOTAL PROTEIN 6.4 G/DL (6.4-8.2); eGFR 52 ML/MIN
[2020-09-26 04:16] LABS: BANDS% (MANUAL) 7 % (0-10); LYMPHOCYTES % (MANUAL) 21 % (21-51); NEUTROPHILS % (MANUAL) 56 % (42-75); TOTAL CELLS COUNTED 100
[2020-09-26 04:17] LABS: EOSINOPHILS % (MANUAL) 1 % (0-6); MONOCYTES % (MANUAL) 15 % (2-12); PLATELET ESTIMATE DECREASED
[2020-09-26 04:18] LABS: ANISOCYTOSIS 1+
[2020-09-26] MEDS: thiamine inj. 100 MG in normal saline 100ml IV soln 100 ML IV SCH (07:31)
[2020-09-26] MEDS: aspirin 300mg supp.rect RC SCH (07:31)
[2020-09-26] MEDS: enoxaparin 40mg/0.4ml syringe SUBCUT SCH ×2 (07:31→20:15)
[2020-09-26] MEDS: famotidine/PF 10 mg/ml inj IV SCH ×2 (07:31→20:07)
[2020-09-26] MEDS: folic acid 1mg/0.2ml inj IV SCH (07:32)
[2020-09-26] MEDS: linagliptin 5mg tablet PO SCH (08:00)
[2020-09-26] MEDS: gabapentin 300mg capsule PO SCH (08:00)
[2020-09-26] MEDS: lisinopril 5mg tablet PO SCH (08:00)
[2020-09-26] MEDS: cholecalciferol (vitamin D3) 1,000 unit (25mcg) tablet PO SCH (08:00)
[2020-09-26] MEDS: docusate sod 100mg capsule PO SCH (08:00)
[2020-09-26] MEDS: dexmedetomidin/NS 400mcg/100ml 100 ML IV SCH ×2 (08:01→21:54)
[2020-09-26] MEDS: OLANZapine **IM** 10 mg inj. IM SCH ×2 (08:53→20:09)
[2020-09-26] MEDS: NORepinephrine 8mg/ 250ml NS 250 ML IV SCH ×2 (10:06→20:36)
--- NOTE | 2020-09-26 12:14 | NUR ---
Reassessment: Pt remains NPO day 4 w/ ALOC AOx1/confused per EMR. RD d/w RN regarding corpak at this time to meet nutrition needs if MD agreeable; TF recs below. LBM 09/22 4 days constipation w/ bowel care ordered but unable to given w/ NPO status. DM/HH diet eds deferred until pt more appropriate this admit. Will continue to monitor. Rec: 1. consider corpak for nutrition if MD agreeable. IF TF; Vital AF at 80ml/hr goal; to provide 1920ml volume, 2304kcals, 1555ml free water, and 144g protein. 2. IF TF; additional water flush 200ml Q4H 3. IF TF; PALB Q /; daily wts 4. routine bowel care; 4 days constipation 5. advance diet as medically indicated per SENIOR WINDOWS ENGINEER recs to carb controlled/heart healthy 6. DM/HH diet eds deferred until pt more appropriate this admit Addendum: 09/26/20 at [address] Amended: Links added. Addendum: 09/26/20 at [address] *CORRECTION: Rec: 1. consider corpak for nutrition if MD agreeable. IF TF; Vital AF at 80ml/hr goal; to provide 1920ml volume, 2304kcals, 1555ml free water, and 144g protein. 2. IF TF and pt remains on sodium bicarb at 100ml/hr providing 408kcals dex/day; Vital AF at 70ml/hr goal 3. IF TF; additional water flush 200ml Q4H 4. IF TF; PALB Q /; daily wts 5. routine bowel care; 4 days constipation 6. advance diet as medically indicated per SENIOR WINDOWS ENGINEER recs to carb controlled/heart healthy 7. DM/HH diet eds deferred until pt more appropriate this admit
[2020-09-26] MEDS: normal saline 1000ml 1,000 ML IV SCH (13:19)
[2020-09-26] MEDS ORDERED: QUEtiapine 25mg tablet PO SCH (13:30)
--- NOTE | 2020-09-26 13:58 | NUR ---
TF Consult: TF to start today via corpak per relationship associate; recs below since pt still receiving sodium bicarb/dex at 100ml/hr per RN. Will monitor for TF tolerance and adjustment needs. Reassessment: Pt remains NPO day 4 w/ ALOC AOx1/confused per EMR. RD d/w RN regarding corpak at this time to meet nutrition needs if MD agreeable; TF recs below. LBM 09/22 4 days constipation w/ bowel care ordered but unable to given w/ NPO status. DM/HH diet eds deferred until pt more appropriate this admit. Will continue to monitor. Rec: 1. Continuous TF via corpak per MD using Vital AF at 70ml/hr goal; to provide 1680ml volume, 2016kcals, 1361ml free water, and 126g protein. 2. IF pt weaned from sodium/bicarb/dex at 100ml/hr; advance TF to 80ml/hr goal using Vital AF; to provide 1920ml volume, 2304kcals, 1555ml free water, and 144g protein. 3. additional water flush 200ml Q4H 4. PALB Q /; daily wts 5. routine bowel care; 4 days constipation 6. advance diet as medically indicated per HOOP MAKER recs to carb controlled/heart healthy 7. DM/HH diet eds deferred until pt more appropriate this admit Addendum: 09/26/20 at [address] Amended: Links added.
[2020-09-26] MEDS ORDERED: acetaminophen 325mg tablet CORPAK PRN (14:20)
[2020-09-26] MEDS ORDERED: dextrose ORAL solution 15 GM/59 ML bottle CORPAK PRN ×2 (14:21)
[2020-09-26] MEDS ORDERED: POTASSIUM BICARB 20meq eff tab 20 MEQ TABLET.EFF CORPAK PRN ×2 (14:25)
[2020-09-26] MEDS: clindamycin 600mg/D5W 50ml 50 ML IV SCH ×2 (17:12→21:48)
--- NOTE | 2020-09-26 18:24 | NUR ---
Problems reprioritized. Patient report given, questions answered & plan of care reviewed with Yasmine SOTO.
--- NOTE | 2020-09-26 18:25 | NUR ---
Patient in room ICU 2044. I have received report from Augie SOTO and had the opportunity to ask questions and assume patient care.
[2020-09-26] MEDS: docusate sodium 100mg/10ml UD cup CORPAK SCH (20:06)
[2020-09-26] MEDS: atorvastatin 20mg tablet CORPAK SCH (20:07)
[2020-09-26] MEDS: QUEtiapine 25mg tablet CORPAK SCH (20:07)
[2020-09-26] MEDS: gabapentin 300mg capsule CORPAK SCH (20:07)
[2020-09-26] MEDS: insulin regular, human U-100 3ml vial - multi-dose SQ SCH (20:48)
[2020-09-26] MEDS: insulin glargine (Lantus) pen - multi-dose SQ SCH (20:52)
[2020-09-27] VITALS (24 sets, daily range): BP systolic 107–149; BP diastolic 56–98
[2020-09-27] MEDS ORDERED: LORazepam 1 MG tablet PO PRN (00:25)
[2020-09-27] MEDS: insulin regular, human U-100 3ml vial - multi-dose SQ SCH ×4 (01:57→20:52)
[2020-09-27 03:02] LABS: ALANINE AMINOTRANSFERASE 84 U/L (12-78); ALBUMIN 1.8 G/DL (3.4-5.0); ALBUMIN/GLOBULIN RATIO 0.4 (1.1-1.5); ALKALINE PHOSPHATASE 157 IU/L (46-116); ANION GAP 8 (8-16); ASPARTATE AMINO TRANSFERASE 115 U/L (10-37); BILIRUBIN,TOTAL 1.8 MG/DL (0.1-1.0); BLOOD UREA NITROGEN 29 MG/DL (7-18); CALCIUM 6.6 MG/DL (8.5-10.1); CHLORIDE 115 MMOL/L (99-107); GLUCOSE 160 MG/DL (70-104); MAGNESIUM 1.2 MG/DL (1.5-2.4); PHOSPHORUS 2.1 MG/DL (2.3-4.5); POTASSIUM 3.6 MMOL/L (3.5-5.1); PREALBUMIN 6.7 MG/DL (19-36); SODIUM 147 MMOL/L (135-145); TOTAL PROTEIN 6.4 G/DL (6.4-8.2); eGFR 75 ML/MIN
[2020-09-27 03:03] LABS: BASOPHILS % (AUTO) 0.5 % (0-1); EOSINOPHILS # (AUTO) 0.1 X10'3 (0-0.9); EOSINOPHILS % (AUTO) 1.3 % (0-6); HEMATOCRIT 31.6 % (42.0-52.0); HEMOGLOBIN 10.6 g/dl (14.0-17.9); LYMPHOCYTES % (AUTO) 19.8 % (21-51); MEAN CORPUSCULAR HEMOGLOBIN 32.4 PG (27.0-31.0); MEAN CORPUSCULAR HGB CONC 33.5 g/dL (33.0-36.5); MEAN CORPUSCULAR VOLUME 96.8 FL (78-98); MEAN PLATELET VOLUME 7.5 FL (7.4-10.4); MONOCYTES # (AUTO) 0.6 X10'3 (0-0.9); MONOCYTES % (AUTO) 11.3 % (2-12); NEUTROPHILS # (AUTO) 3.3 X10'3 (1.8-7.7); NEUTROPHILS % (AUTO) 67.1 % (42-75); PLATELET COUNT 101 X10'3 (140-440); RED BLOOD COUNT 3.26 X10'6 (4.70-6.10); RED CELL DISTRIBUTION WIDTH 16.5 % (11.5-14.5); WHITE BLOOD COUNT 4.9 X10'3 (4.5-11.0)
[2020-09-27] MEDS: clindamycin 600mg/D5W 50ml 50 ML IV SCH ×4 (03:29→21:05)
--- NOTE | 2020-09-27 03:57 | NUR ---
Called to Dr. Louis regarding to patient's mag level 1.2. gave a 1 time dose order of Mag Sulfate 4gm. RN read back the order.
[2020-09-27] MEDS ORDERED: magnesium 4gm in 100ml NS 100 ML IV ONE (04:00)
--- NOTE | 2020-09-27 06:28 | NUR ---
Problems reprioritized. Patient report given at bedside, questions answered & plan of care reviewed with Michelle RN & Alondra RN .
--- NOTE | 2020-09-27 06:34 | NUR ---
Patient in room ICU 2044. I have received report from BRITTANY MCCOY, and had the opportunity to ask questions and assume patient care.
[2020-09-27] MEDS: NORepinephrine 8mg/ 250ml NS 250 ML IV SCH (07:06)
[2020-09-27] MEDS: piperacillin/tazo 4.5gm/100ml 100 ML IV SCH ×3 (08:17→23:06)
[2020-09-27] MEDS: thiamine inj. 100 MG in normal saline 100ml IV soln 100 ML IV SCH (08:18)
[2020-09-27] MEDS: enoxaparin 40mg/0.4ml syringe SUBCUT SCH ×2 (08:19→20:09)
[2020-09-27] MEDS: docusate sodium 100mg/10ml UD cup CORPAK SCH ×2 (08:19→20:08)
[2020-09-27] MEDS: OLANZapine **IM** 10 mg inj. IM SCH ×2 (08:20→20:27)
[2020-09-27] MEDS: famotidine/PF 10 mg/ml inj IV SCH ×2 (08:21→20:08)
[2020-09-27] MEDS: linagliptin 5mg tablet CORPAK SCH (08:22)
[2020-09-27] MEDS: QUEtiapine 25mg tablet CORPAK SCH (08:22)
[2020-09-27] MEDS: cholecalciferol (vitamin D3) 1,000 unit (25mcg) tablet CORPAK SCH (08:22)
[2020-09-27] MEDS: gabapentin 300mg capsule CORPAK SCH ×2 (08:23→20:09)
[2020-09-27] MEDS: aspirin 300mg supp.rect RC SCH (08:23)
[2020-09-27] MEDS: lisinopril 5mg tablet CORPAK SCH (09:07)
[2020-09-27] MEDS: folic acid 1mg/0.2ml inj IV SCH (09:07)
[2020-09-27] MEDS: normal saline 1000ml 1,000 ML IV SCH (09:19)
[2020-09-27] MEDS ORDERED: potassium phosphate inj 15 MMOL in normal saline 250ml IV soln 250 ML IV ONE (11:05)
[2020-09-27] MEDS ORDERED: furosemide 40mg/4ml inj IV ONE (11:10)
--- NOTE | 2020-09-27 12:20 | NUR ---
PRECEDEX STOPPED PER DR. TRUJILLO. TAPERED FROM 0.1 TO 0. WILL CONTINUE TO MONITOR.
--- NOTE | 2020-09-27 14:00 | NUR ---
Glenn Consult: Glenn 12; skin intact per EMR. Noted pt off sodium bicarb drip per MD; TF now advancing from 70ml/hr to 80ml/hr goal per initial recs. TF Consult: TF to start today via corpak per hand dry cleaner; recs below since pt still receiving sodium bicarb/dex at 100ml/hr per RN. Will monitor for TF tolerance and adjustment needs. Rec: 1. Continuous TF via corpak per MD using Vital AF at 80ml/hr goal; to provide 1920ml volume, 2304kcals, 1555ml free water, and 144g protein. 2. additional water flush 200ml Q4H 3. PALB Q /; daily wts 4. routine bowel care; 4 days constipation 5. advance diet as medically indicated per RF DESIGN ENGINEER recs to carb controlled/heart healthy 6. DM/HH diet eds deferred until pt more appropriate this admit Addendum: 09/27/20 at [address] Amended: Links added. Addendum: 09/27/20 at [address] Glenn Consult: Glenn 12; skin intact per EMR. Noted pt off sodium bicarb drip per MD; TF now advancing from 70ml/hr to 80ml/hr goal per initial recs. Rec: 1. Continuous TF via corpak per MD using Vital AF at 80ml/hr goal; to provide 1920ml volume, 2304kcals, 1555ml free water, and 144g protein. 2. additional water flush 200ml Q4H 3. PALB Q /; daily wts 4. routine bowel care; 4 days constipation 5. advance diet as medically indicated per RF DESIGN ENGINEER recs to carb controlled/heart healthy 6. DM/HH diet eds deferred until pt more appropriate this admit
[2020-09-27] MEDS: dexmedetomidin/NS 400mcg/100ml 100 ML IV SCH ×2 (14:37→22:30)
[2020-09-27 15:26] LABS: CLARITY,URINE CLEAR (Clear); COLOR,URINE YELLOW (Yellow); GLUCOSE, URINE 250 mg/dl (Neg); KETONES,URINE NEGATIVE (Neg); LEUKOCYTE ESTERASE ,URINE NEGATIVE (Neg); NITRITES, URINE NEGATIVE (Neg); OCCULT BLOOD,URINE MODERATE (Neg); PROTEIN,URINE NEGATIVE (Neg); UROBILINOGEN,URINE 0.2 E.U/dL (0.2-1.0)
[2020-09-27 15:33] LABS: UA COLLECTION TYPE NON-SPECIFIED
[2020-09-27 15:42] LABS: MUCUS STRANDS NONE SEEN /LPF (Neg); RBC,URINE 0-2 /HPF (0-2); SQUAMOUS EPITHELIAL CELL,UR FEW /LPF (FEW); WBC,URINE 0-4 /HPF (0-4)
--- NOTE | 2020-09-27 16:24 | NUR ---
TF INCREASED TO 80 ML/HR PER MD ORDER.
--- NOTE | 2020-09-27 16:28 | NUR ---
Performed oral care and suctioned pt.
[2020-09-27] MEDS: LORazepam 2 mg/ml vial IV PRN (16:44)
--- NOTE | 2020-09-27 17:54 | NUR ---
Orientee documentation: I have reviewed and agree with all interventions, assessments performed and documented by BRITTANY Cantu.
--- NOTE | 2020-09-27 18:32 | NUR ---
Problems reprioritized. Patient report given, questions answered & plan of care reviewed with BRITTANY MCCOY.
--- NOTE | 2020-09-27 18:35 | NUR ---
Patient in room ICU 2044. I have received report from Michelle SOTO & Alondra RN at bedside and had the opportunity to ask questions and assume patient care.
[2020-09-27] MEDS: atorvastatin 20mg tablet CORPAK SCH (20:08)
[2020-09-27] MEDS: quetiapine 100mg tablet CORPAK SCH (20:08)
[2020-09-27] MEDS: insulin glargine (Lantus) pen - multi-dose SQ SCH (20:53)
[2020-09-28] VITALS (10 sets, daily range): BP systolic 108–136; BP diastolic 59–75
[2020-09-28] MEDS: normal saline 1000ml 1,000 ML IV SCH (00:18)
[2020-09-28] MEDS: insulin regular, human U-100 3ml vial - multi-dose SQ SCH ×2 (02:40→16:10)
[2020-09-28] MEDS: clindamycin 600mg/D5W 50ml 50 ML IV SCH ×3 (03:18→16:25)
[2020-09-28 03:37] LABS: ALANINE AMINOTRANSFERASE 82 U/L (12-78); ALBUMIN 1.8 G/DL (3.4-5.0); ALBUMIN/GLOBULIN RATIO 0.4 (1.1-1.5); ALKALINE PHOSPHATASE 185 IU/L (46-116); ANION GAP 7 (8-16); ASPARTATE AMINO TRANSFERASE 94 U/L (10-37); BILIRUBIN,TOTAL 1.4 MG/DL (0.1-1.0); BLOOD UREA NITROGEN 19 MG/DL (7-18); BUN/CREATININE RATIO 18.1 (5.4-32.0); CALCIUM 7.1 MG/DL (8.5-10.1); CHLORIDE 113 MMOL/L (99-107); CREATININE 1.05 MG/DL (0.60-1.10); GLUCOSE 183 MG/DL (70-104); MAGNESIUM 1.4 MG/DL (1.5-2.4); PHOSPHORUS 2.9 MG/DL (2.3-4.5); POTASSIUM 3.7 MMOL/L (3.5-5.1); SODIUM 148 MMOL/L (135-145); TOTAL CARBON DIOXIDE 27.7 MMOL/L (24-32); TOTAL PROTEIN 6.8 G/DL (6.4-8.2); eGFR 71 ML/MIN
[2020-09-28] MEDS ORDERED: magnesium 2GM in 50ml NS 50 ML IV PRN (04:30)
[2020-09-28] MEDS ORDERED: magnesium 4gm in 100ml NS 100 ML IV PRN (04:30)
--- NOTE | 2020-09-28 04:33 | NUR ---
Called to Dr. Abernathy regarding to patient's mag level of 1.4. gave an order of 6gm IV mag now.
--- NOTE | 2020-09-28 06:40 | NUR ---
Problems reprioritized. Patient report given, questions answered & plan of care reviewed with Araceli RN at bedside.
[2020-09-28] MEDS ORDERED: QUEtiapine 25mg tablet CORPAK SCH (08:00)
[2020-09-28] MEDS: thiamine inj. 100 MG in normal saline 100ml IV soln 100 ML IV SCH (08:00)
[2020-09-28 09:40] LABS: BACTERIA,URINE NONE SEEN /HPF (Neg)
[2020-09-28] MEDS: cholecalciferol (vitamin D3) 1,000 unit (25mcg) tablet CORPAK SCH (10:00)
[2020-09-28] MEDS: famotidine/PF 10 mg/ml inj IV SCH ×2 (10:00→21:16)
[2020-09-28] MEDS: enoxaparin 40mg/0.4ml syringe SUBCUT SCH ×2 (10:00→21:20)
[2020-09-28] MEDS: docusate sodium 100mg/10ml UD cup CORPAK SCH ×2 (10:00→21:15)
[2020-09-28] MEDS: linagliptin 5mg tablet CORPAK SCH (10:00)
[2020-09-28] MEDS: gabapentin 300mg capsule CORPAK SCH ×2 (10:00→21:15)
[2020-09-28] MEDS: lisinopril 5mg tablet CORPAK SCH (10:00)
[2020-09-28] MEDS: piperacillin/tazo 4.5gm/100ml 100 ML IV SCH ×2 (10:00→17:40)
[2020-09-28] MEDS: aspirin 300mg supp.rect RC SCH (14:18)
[2020-09-28] MEDS: folic acid 1mg/0.2ml inj IV SCH (14:23)
--- NOTE | 2020-09-28 16:00 | NUR ---
Received report from BRITTANY Cedeño. Patient transferred to room 2742p. Tele placed. Oral care performed. Tube feeding set at 70ml per doctors orders. Patient sitting with HOB elevated at 45 degrees. Son at bedside.
--- NOTE | 2020-09-28 18:32 | NUR ---
Problems reprioritized. Patient report given, questions answered & plan of care reviewed with BRITTANY Ortez .
[2020-09-28] MEDS: lactobacillus rhamnosus 10,000 MMU CELLS/CAPSULE PO SCH (21:15)
[2020-09-28] MEDS: quetiapine 100mg tablet CORPAK SCH (21:15)
[2020-09-28] MEDS: atorvastatin 20mg tablet CORPAK SCH (21:15)
[2020-09-28] MEDS: OLANZapine **IM** 10 mg inj. IM SCH (21:16)
[2020-09-28] MEDS: insulin glargine (Lantus) pen - multi-dose SQ SCH (21:23)
[2020-09-29] MEDS: clindamycin 600mg/D5W 50ml 50 ML IV SCH ×5 (00:05→22:12)
[2020-09-29] MEDS: piperacillin/tazo 4.5gm/100ml 100 ML IV SCH ×4 (00:31→23:26)
[2020-09-29] MEDS: normal saline 1000ml 1,000 ML IV SCH (01:19)
--- NOTE | 2020-09-29 06:44 | NUR ---
Patient in room PCU 3017. I have received report from BRITTANY Jain and had the opportunity to ask questions and assume patient care.
[2020-09-29 06:51] LABS: BASOPHILS % (AUTO) 0.4 % (0-1); EOSINOPHILS # (AUTO) 0.1 X10'3 (0-0.9); EOSINOPHILS % (AUTO) 1.4 % (0-6); HEMATOCRIT 30.4 % (42.0-52.0); HEMOGLOBIN 10.2 g/dl (14.0-17.9); LYMPHOCYTES # (AUTO) 1.3 X10'3 (1.1-4.8); LYMPHOCYTES % (AUTO) 20.3 % (21-51); MEAN CORPUSCULAR HEMOGLOBIN 32.1 PG (27.0-31.0); MEAN CORPUSCULAR HGB CONC 33.5 g/dL (33.0-36.5); MEAN CORPUSCULAR VOLUME 95.8 FL (78-98); MEAN PLATELET VOLUME 7.3 FL (7.4-10.4); MONOCYTES # (AUTO) 0.4 X10'3 (0-0.9); MONOCYTES % (AUTO) 5.6 % (2-12); NEUTROPHILS # (AUTO) 4.8 X10'3 (1.8-7.7); NEUTROPHILS % (AUTO) 72.3 % (42-75); PLATELET COUNT 161 X10'3 (140-440); RED BLOOD COUNT 3.17 X10'6 (4.70-6.10); RED CELL DISTRIBUTION WIDTH 16.7 % (11.5-14.5); WHITE BLOOD COUNT 6.6 X10'3 (4.5-11.0)
[2020-09-29 07:06] LABS: ALANINE AMINOTRANSFERASE 65 U/L (12-78); ALBUMIN 1.8 G/DL (3.4-5.0); ALBUMIN/GLOBULIN RATIO 0.3 (1.1-1.5); ALKALINE PHOSPHATASE 196 IU/L (46-116); ANION GAP 9 (8-16); ASPARTATE AMINO TRANSFERASE 69 U/L (10-37); BILIRUBIN,TOTAL 1.2 MG/DL (0.1-1.0); BLOOD UREA NITROGEN 16 MG/DL (7-18); BUN/CREATININE RATIO 17.2 (5.4-32.0); CALCIUM 7.6 MG/DL (8.5-10.1); CHLORIDE 115 MMOL/L (99-107); CREATININE 0.93 MG/DL (0.60-1.10); GLUCOSE 190 MG/DL (70-104); MAGNESIUM 1.6 MG/DL (1.5-2.4); PHOSPHORUS 2.5 MG/DL (2.3-4.5); POTASSIUM 3.9 MMOL/L (3.5-5.1); SODIUM 150 MMOL/L (135-145); TOTAL CARBON DIOXIDE 26.1 MMOL/L (24-32); TOTAL PROTEIN 7.5 G/DL (6.4-8.2); eGFR 82 ML/MIN
--- NOTE | 2020-09-29 07:33 | NUR ---
notified. PAGER ID: [phone] MESSAGE: RE: Michael Dias. [id number]. Noticed the maintaince fluids were changed due to his NA. Are you still comfortable with D5 with him being diabetic and having tube feed going? thanks. Teresa. [phone]
[2020-09-29] MEDS: docusate sodium 100mg/10ml UD cup CORPAK SCH (08:00)
[2020-09-29] MEDS: dextrose 5%-water 1,000 ML IV SCH ×2 (08:22→17:40)
[2020-09-29] MEDS: linagliptin 5mg tablet CORPAK SCH (08:43)
[2020-09-29] MEDS: OLANZapine **IM** 10 mg inj. IM SCH (08:43)
[2020-09-29] MEDS: quetiapine 100mg tablet CORPAK SCH (08:43)
[2020-09-29] MEDS: thiamine inj. 100 MG in normal saline 100ml IV soln 100 ML IV SCH (08:43)
[2020-09-29] MEDS: aspirin 300mg supp.rect RC SCH (08:44)
[2020-09-29] MEDS: cholecalciferol (vitamin D3) 1,000 unit (25mcg) tablet CORPAK SCH (08:45)
[2020-09-29] MEDS: gabapentin 300mg capsule CORPAK SCH ×2 (08:46→22:59)
[2020-09-29] MEDS: famotidine/PF 10 mg/ml inj IV SCH ×2 (08:46→22:59)
[2020-09-29] MEDS: enoxaparin 40mg/0.4ml syringe SUBCUT SCH (08:47)
[2020-09-29] MEDS: lactobacillus rhamnosus 10,000 MMU CELLS/CAPSULE PO SCH ×2 (08:47→22:59)
[2020-09-29] MEDS: lisinopril 5mg tablet CORPAK SCH (08:49)
[2020-09-29] MEDS: insulin regular, human U-100 3ml vial - multi-dose SQ SCH ×3 (09:32→22:04)
--- NOTE | 2020-09-29 09:34 | NUR ---
notified. PAGER ID: [phone] MESSAGE: RE: Michael Dias. [phone]. If it all possible could we potentially place a rectal tube? Patient is having multiple episodes of liquid stool. Thanks. Teresa. [phone].
--- NOTE | 2020-09-29 10:05 | NUR ---
Patient cleaned and repositioned with hovermat placed underneath him. Rectal tube placed in rectum, with balloon expanded to 45ml. patient tolerated procedure fairly.
[2020-09-29 11:00] VITALS: BP 169/109
[2020-09-29] MEDS: acetaminophen 325mg tablet CORPAK PRN (11:32)
[2020-09-29] MEDS: folic acid 1mg/0.2ml inj IV SCH (11:33)
--- NOTE | 2020-09-29 12:27 | NUR ---
F/u 09/29: Pt tolerating TF 70ml/hr GRV WNL. TF reduced to 70ml/hr from prior 80ml/hr since pt started on D5 at 100ml/hr r/t serum Na 150 per MD as not to overfeed per initial RD recs. Pt receiving 200ml Q4H water flushes per RN. Per EMR; pending rectal tube placement for diarrhea today likely r/t prior 6 days constipation resolving. Will continue to monitor for TF tolerance and adjustment needs as medically indicated. Rec: 1. Continuous TF via corpak per MD. While pt on D5 at 100ml/hr; Vital AF at 70ml/hr goal; to provide 1680ml volume, 2016kcals, 1361ml free water, and 126g protein. 2. Once pt off D5 at 100ml/hr; advnce TF to Vital AF at 80ml/hr goal; to provide 1920ml volume, 2304kcals, 1555ml free water, and 144g protein. 3. additional water flush 200ml Q4H 4. PALB Q /; daily wts 5. bowel care per rx; prior 6 days constipation resolving pending rectal tube 6. advance diet as medically indicated per PARTS SALES MANAGER recs to carb controlled/heart healthy 7. DM/HH diet eds deferred until pt more appropriate this admit Addendum: 09/29/20 at [address] Amended: Links added.
--- NOTE | 2020-09-29 14:08 | NUR ---
notified. PAGER ID: [phone] MESSAGE: RE; Michael Dias. [phone]. Pt's bilateral arms are both very edematous, red, and tender. Patient unable to work with PT secondary to arm pain. Physical therapist concerned for compartment syndrome. Thanks. manuela. [phone].
[2020-09-29 15:00] VITALS: BP 130/66
[2020-09-29] MEDS ORDERED: furosemide 20 MG/2 ML vial IV ONE (16:15)
--- NOTE | 2020-09-29 16:37 | NUR ---
notified PAGER ID: [phone] MESSAGE: RE; Michael Dias. [phone]. water treatment technicianbenedict, concerned about his size and compliance. the scan would require him to hold his arms above his head for 4-5 minutes. Would you still like to proceed? thanks. Teresa. [phone].
--- NOTE | 2020-09-29 18:14 | NUR ---
notified. PAGER ID: [phone] MESSAGE: Re: Michael Dias. [phone]. US En Noir is writing report; Superficial and deep dvt on right arm. Unable to US left arm due to patient non compliance. Thanks. Teresa. [phone].
--- NOTE | 2020-09-29 18:50 | NUR ---
Problems reprioritized. Patient report given, questions answered & plan of care reviewed with BRITTANY Rose.
[2020-09-29 19:00] VITALS: BP 148/72
--- NOTE | 2020-09-29 19:00 | NUR ---
Preceptee documentation: I have reviewed and agree with all interventions, assessments performed and documented by BRITTANY Breaux. Preceptee Medication Administration: For this medication-pass time frame, all medication were reviewed, dispensed, administered and documented per hospital policy by BRITTANY Breaux.
[2020-09-29] MEDS: LORazepam 2 mg/ml vial IV PRN (19:43)
[2020-09-29 22:00] VITALS: BP 151/82
[2020-09-29] MEDS: insulin glargine (Lantus) pen - multi-dose SQ SCH (22:07)
[2020-09-29] MEDS: atorvastatin 20mg tablet CORPAK SCH (22:59)
[2020-09-29] MEDS: furosemide 20 MG/2 ML vial IV SCH (22:59)
[2020-09-29] MEDS ORDERED: enoxaparin 100mg/ml syringe SUBCUT ONE (23:10)
[2020-09-29] MEDS ORDERED: enoxaparin 30mg/0.3ml syringe SUBCUT ONE (23:10)
[2020-09-30 02:58] VITALS: BP 148/69
[2020-09-30] MEDS: insulin regular, human U-100 3ml vial - multi-dose SQ SCH ×4 (03:22→21:57)
[2020-09-30] MEDS: clindamycin 600mg/D5W 50ml 50 ML IV SCH ×2 (04:33→11:09)
[2020-09-30] MEDS: dextrose 5%-water 1,000 ML IV SCH ×3 (04:36→20:30)
[2020-09-30 06:00] VITALS: BP 169/84
--- NOTE | 2020-09-30 06:30 | NUR ---
Patient in room PCU 3017. I have received report from BRITTANY Rose and had the opportunity to ask questions and assume patient care.
--- NOTE | 2020-09-30 07:28 | NUR ---
Paged Dr. Parra PAGER ID: [phone] MESSAGE: CRISTÓBAL Dias [id number]; Positive R venous ultrasound, PICC line present in same arm. Indira SOTO [phone]
[2020-09-30] MEDS: aspirin 300mg supp.rect RC SCH (08:00)
--- NOTE | 2020-09-30 08:30 | NUR ---
RE PICC & Positive US Spoke with Dr. Parra and Abigail PICC RN; per orders and advise of PICC RN Abigail, keep PICC line and continue using it for therapy.
[2020-09-30 08:44] LABS: BASOPHILS % (AUTO) 0.4 % (0-1); EOSINOPHILS # (AUTO) 0.1 X10'3 (0-0.9); EOSINOPHILS % (AUTO) 1.2 % (0-6); HEMATOCRIT 28.6 % (42.0-52.0); HEMOGLOBIN 9.6 g/dl (14.0-17.9); LYMPHOCYTES % (AUTO) 16.3 % (21-51); MEAN CORPUSCULAR HEMOGLOBIN 32.1 PG (27.0-31.0); MEAN CORPUSCULAR HGB CONC 33.4 g/dL (33.0-36.5); MEAN PLATELET VOLUME 7.1 FL (7.4-10.4); MONOCYTES # (AUTO) 0.4 X10'3 (0-0.9); MONOCYTES % (AUTO) 7.3 % (2-12); NEUTROPHILS # (AUTO) 4.4 X10'3 (1.8-7.7); NEUTROPHILS % (AUTO) 74.8 % (42-75); PLATELET COUNT 154 X10'3 (140-440); RED BLOOD COUNT 2.98 X10'6 (4.70-6.10); WHITE BLOOD COUNT 5.9 X10'3 (4.5-11.0)
[2020-09-30 08:57] LABS: ALANINE AMINOTRANSFERASE 49 U/L (12-78); ALBUMIN 1.6 G/DL (3.4-5.0); ALBUMIN/GLOBULIN RATIO 0.3 (1.1-1.5); ALKALINE PHOSPHATASE 168 IU/L (46-116); ANION GAP 7 (8-16); ASPARTATE AMINO TRANSFERASE 54 U/L (10-37); BILIRUBIN,TOTAL 0.9 MG/DL (0.1-1.0); BLOOD UREA NITROGEN 14 MG/DL (7-18); BUN/CREATININE RATIO 17.1 (5.4-32.0); CALCIUM 7.6 MG/DL (8.5-10.1); CHLORIDE 111 MMOL/L (99-107); CREATININE 0.82 MG/DL (0.60-1.10); GLUCOSE 159 MG/DL (70-104); MAGNESIUM 1.4 MG/DL (1.5-2.4); PHOSPHORUS 3.5 MG/DL (2.3-4.5); POTASSIUM 3.8 MMOL/L (3.5-5.1); PREALBUMIN 6.9 MG/DL (19-36); SODIUM 147 MMOL/L (135-145); TOTAL CARBON DIOXIDE 29.5 MMOL/L (24-32); TOTAL PROTEIN 7.2 G/DL (6.4-8.2); eGFR > 90 ML/MIN
[2020-09-30 11:00] VITALS: BP 132/67
[2020-09-30] MEDS: enoxaparin 30mg/0.3ml syringe SUBCUT SCH ×2 (11:03→21:08)
[2020-09-30] MEDS: enoxaparin 100mg/ml syringe SUBCUT SCH ×2 (11:04→21:07)
[2020-09-30] MEDS: lactobacillus rhamnosus 10,000 MMU CELLS/CAPSULE PO SCH ×2 (11:04→21:07)
[2020-09-30] MEDS: lisinopril 5mg tablet CORPAK SCH (11:07)
[2020-09-30] MEDS: cholecalciferol (vitamin D3) 1,000 unit (25mcg) tablet CORPAK SCH (11:07)
[2020-09-30] MEDS: linagliptin 5mg tablet CORPAK SCH (11:08)
[2020-09-30] MEDS: gabapentin 300mg capsule CORPAK SCH ×2 (11:08→21:06)
[2020-09-30] MEDS: furosemide 20 MG/2 ML vial IV SCH (11:08)
[2020-09-30] MEDS: famotidine/PF 10 mg/ml inj IV SCH ×2 (11:08→21:07)
[2020-09-30] MEDS: folic acid 1mg/0.2ml inj IV SCH (11:09)
[2020-09-30] MEDS: piperacillin/tazo 4.5gm/100ml 100 ML IV SCH ×3 (11:09→23:55)
[2020-09-30] MEDS: thiamine inj. 100 MG in normal saline 100ml IV soln 100 ML IV SCH (11:11)
[2020-09-30] MEDS: carVEDilol 3.125mg tablet PO SCH ×2 (11:33→21:07)
[2020-09-30 15:00] VITALS: BP 117/51
[2020-09-30] MEDS ORDERED: LORazepam 2 mg/ml vial IV ONE (16:10)
[2020-09-30] MEDS ORDERED: vancomycin/NS 1 GM ADD-VANTAGE 250 ML X 1 DOSE IV SCH (17:00)
[2020-09-30] MEDS ORDERED: iohexol 300mg/ml 100ml inj. ONE (17:23)
--- NOTE | 2020-09-30 18:40 | NUR ---
Problems reprioritized. Patient report given, questions answered & plan of care reviewed with BRITTANY Rodrigues.
[2020-09-30 19:00] VITALS: BP 100/55
[2020-09-30] MEDS: furosemide 40mg/4ml inj IV SCH (21:06)
[2020-09-30] MEDS: atorvastatin 20mg tablet CORPAK SCH (21:08)
[2020-09-30] MEDS: quetiapine 100mg tablet CORPAK SCH (21:08)
[2020-09-30 22:00] VITALS: BP 98/48
[2020-09-30] MEDS: insulin glargine (Lantus) pen - multi-dose SQ SCH (22:01)
[2020-10-01] MEDS ORDERED: vancomycin/NS 1 GM ADD-VANTAGE 250 ML X 1 DOSE IV SCH
[2020-10-01] MEDS: insulin regular, human U-100 3ml vial - multi-dose SQ SCH ×2 (03:52→10:52)
[2020-10-01] MEDS: vancomycin/NS 1 GM ADD-VANTAGE 250 ML X 1 DOSE IV SCH ×3 (05:04→21:00)
[2020-10-01 05:54] LABS: BASOPHILS % (AUTO) 0.6 % (0-1); EOSINOPHILS % (AUTO) 0.8 % (0-6); HEMOGLOBIN 9.1 g/dl (14.0-17.9); LYMPHOCYTES % (AUTO) 18.2 % (21-51); MEAN CORPUSCULAR HEMOGLOBIN 32.8 PG (27.0-31.0); MEAN CORPUSCULAR HGB CONC 33.8 g/dL (33.0-36.5); MEAN CORPUSCULAR VOLUME 96.8 FL (78-98); MEAN PLATELET VOLUME 7.5 FL (7.4-10.4); MONOCYTES # (AUTO) 0.4 X10'3 (0-0.9); MONOCYTES % (AUTO) 7.3 % (2-12); NEUTROPHILS # (AUTO) 4.2 X10'3 (1.8-7.7); NEUTROPHILS % (AUTO) 73.1 % (42-75); PLATELET COUNT 162 X10'3 (140-440); RED BLOOD COUNT 2.79 X10'6 (4.70-6.10); RED CELL DISTRIBUTION WIDTH 16.5 % (11.5-14.5); WHITE BLOOD COUNT 5.7 X10'3 (4.5-11.0)
[2020-10-01 06:00] VITALS: BP 112/67
[2020-10-01 06:43] LABS: ALANINE AMINOTRANSFERASE 40 U/L (12-78); ALBUMIN 1.6 G/DL (3.4-5.0); ALBUMIN/GLOBULIN RATIO 0.3 (1.1-1.5); ALKALINE PHOSPHATASE 157 IU/L (46-116); ANION GAP 7 (8-16); ASPARTATE AMINO TRANSFERASE 44 U/L (10-37); BILIRUBIN,TOTAL 0.9 MG/DL (0.1-1.0); BLOOD UREA NITROGEN 19 MG/DL (7-18); BUN/CREATININE RATIO 21.6 (5.4-32.0); CALCIUM 7.7 MG/DL (8.5-10.1); CHLORIDE 108 MMOL/L (99-107); CREATININE 0.88 MG/DL (0.60-1.10); GLUCOSE 108 MG/DL (70-104); MAGNESIUM 1.2 MG/DL (1.5-2.4); PHOSPHORUS 3.7 MG/DL (2.3-4.5); POTASSIUM 3.4 MMOL/L (3.5-5.1); SODIUM 145 MMOL/L (135-145); TOTAL CARBON DIOXIDE 29.6 MMOL/L (24-32); TOTAL PROTEIN 7.2 G/DL (6.4-8.2); eGFR 87 ML/MIN
--- NOTE | 2020-10-01 07:14 | NUR ---
Problems reprioritized. Patient report given, questions answered & plan of care reviewed with Laura SOTO. Addendum: 10/01/20 at 713 by Jonnie Mazariegos RN Amended: Links added.
[2020-10-01] MEDS: aspirin 300mg supp.rect RC SCH (08:00)
[2020-10-01] MEDS: albuterol 2.5 MG/3 ML nebule NEB PRN (08:16)
[2020-10-01] MEDS: dextrose 5%-water 1,000 ML IV SCH ×2 (09:25→21:06)
[2020-10-01] MEDS: thiamine inj. 100 MG in normal saline 100ml IV soln 100 ML IV SCH (10:19)
[2020-10-01] MEDS: folic acid 1mg/0.2ml inj IV SCH (10:19)
[2020-10-01] MEDS: enoxaparin 100mg/ml syringe SUBCUT SCH ×2 (10:21→21:00)
[2020-10-01] MEDS: enoxaparin 30mg/0.3ml syringe SUBCUT SCH ×2 (10:21→21:00)
[2020-10-01] MEDS: carVEDilol 3.125mg tablet PO SCH ×2 (10:22→21:01)
[2020-10-01] MEDS: furosemide 40mg/4ml inj IV SCH ×2 (10:22→21:02)
[2020-10-01] MEDS: cholecalciferol (vitamin D3) 1,000 unit (25mcg) tablet CORPAK SCH (10:22)
[2020-10-01] MEDS: gabapentin 300mg capsule CORPAK SCH ×2 (10:22→21:01)
[2020-10-01] MEDS: famotidine/PF 10 mg/ml inj IV SCH ×2 (10:23→21:01)
[2020-10-01] MEDS: linagliptin 5mg tablet CORPAK SCH (10:40)
[2020-10-01] MEDS: lactobacillus rhamnosus 10,000 MMU CELLS/CAPSULE PO SCH ×2 (10:40→21:01)
[2020-10-01] MEDS: lisinopril 5mg tablet CORPAK SCH (10:43)
[2020-10-01] MEDS: piperacillin/tazo 3.375gm/50ml 50 ML IV SCH ×2 (11:19→16:00)
[2020-10-01 15:00] VITALS: BP 162/84
--- NOTE | 2020-10-01 17:34 | NUR ---
Paged Dr. Parra PAGER ID: [phone] MESSAGE: RE [phone] Michael Dias; NEO'd corpak, tolerating PO; ok to put on ACHS protocol? Indira RN [phone] Dr. Parra said to order hyper/hypoglycemic protocol.
[2020-10-01] MEDS ORDERED: dextrose ORAL solution 15 GM/59 ML bottle PO PRN ×2 (19:10)
[2020-10-01] MEDS ORDERED: dextrose 50%-water 50ml dispensing syringe IV PRN ×2 (19:10)
[2020-10-01] MEDS ORDERED: glucagon, human recombinant 1mg kit SUBCUT PRN (19:10)
[2020-10-01] MEDS ORDERED: MESSAGE TO PHARMACY PO ONE (19:10)
[2020-10-01] MEDS ORDERED: VANCOMYCIN LEVEL IV ONE (20:30)
[2020-10-01] MEDS ORDERED: insulin glargine (Lantus) pen - multi-dose SQ SCH (21:00)
[2020-10-01] MEDS: atorvastatin 20mg tablet CORPAK SCH (21:01)
[2020-10-01] MEDS: quetiapine 100mg tablet CORPAK SCH (21:01)
[2020-10-01] MEDS: insulin glargine (Lantus) pen - multi-dose SQ SCH (21:11)
[2020-10-01 22:00] VITALS: BP 153/60
[2020-10-02] MEDS: piperacillin/tazo 3.375gm/50ml 50 ML IV SCH ×3 (00:32→19:31)
[2020-10-02 02:00] VITALS: BP 149/77
--- NOTE | 2020-10-02 04:37 | NUR ---
UPON REVIEWING CHART, NOTED PATIENTS RESTRAINT ORDER HAD . PATIENT RELEASED FROM RESTRAINTS THIS EVENING TO CHANGE PICC LINE DRESSING AND ADJUST SHEETS. HE IMMEDIATELY STARTED PULLING AT HIS LINES. SITTER STILL PRESENT AT BEDSIDE. DR KRUSE CALLED AND THE ORDER WAS RENEWED.
[2020-10-02] MEDS: vancomycin/NS 1 GM ADD-VANTAGE 250 ML X 1 DOSE IV SCH ×3 (05:24→22:53)
[2020-10-02] MEDS: dextrose 5%-water 1,000 ML IV SCH ×2 (05:25→14:38)
[2020-10-02 06:25] LABS: ALANINE AMINOTRANSFERASE 38 U/L (12-78); ALBUMIN 1.7 G/DL (3.4-5.0); ALBUMIN/GLOBULIN RATIO 0.3 (1.1-1.5); ALKALINE PHOSPHATASE 180 IU/L (46-116); ANION GAP 6 (8-16); ASPARTATE AMINO TRANSFERASE 49 U/L (10-37); BILIRUBIN,TOTAL 1.4 MG/DL (0.1-1.0); BLOOD UREA NITROGEN 21 MG/DL (7-18); BUN/CREATININE RATIO 22.3 (5.4-32.0); CALCIUM 7.9 MG/DL (8.5-10.1); CHLORIDE 105 MMOL/L (99-107); CREATININE 0.94 MG/DL (0.60-1.10); GLUCOSE 168 MG/DL (70-104); MAGNESIUM 1.6 MG/DL (1.5-2.4); PHOSPHORUS 3.9 MG/DL (2.3-4.5); SODIUM 138 MMOL/L (135-145); TOTAL CARBON DIOXIDE 27.3 MMOL/L (24-32); TOTAL PROTEIN 7.9 G/DL (6.4-8.2); eGFR 81 ML/MIN
--- NOTE | 2020-10-02 06:25 | NUR ---
Patient in room PCU 3017. I have received report from Marisela SOTO and had the opportunity to ask questions and assume patient care.
[2020-10-02 06:34] LABS: BASOPHILS % (AUTO) 0.3 % (0-1); EOSINOPHILS # (AUTO) 0.1 X10'3 (0-0.9); EOSINOPHILS % (AUTO) 1.1 % (0-6); HEMOGLOBIN 9.8 g/dl (14.0-17.9); LYMPHOCYTES # (AUTO) 1.1 X10'3 (1.1-4.8); LYMPHOCYTES % (AUTO) 14.7 % (21-51); MEAN CORPUSCULAR HEMOGLOBIN 32.5 PG (27.0-31.0); MEAN CORPUSCULAR HGB CONC 33.9 g/dL (33.0-36.5); MEAN PLATELET VOLUME 7.4 FL (7.4-10.4); MONOCYTES # (AUTO) 0.6 X10'3 (0-0.9); MONOCYTES % (AUTO) 7.7 % (2-12); NEUTROPHILS # (AUTO) 5.9 X10'3 (1.8-7.7); NEUTROPHILS % (AUTO) 76.2 % (42-75); PLATELET COUNT 181 X10'3 (140-440); RED BLOOD COUNT 3.02 X10'6 (4.70-6.10); RED CELL DISTRIBUTION WIDTH 16.4 % (11.5-14.5); WHITE BLOOD COUNT 7.8 X10'3 (4.5-11.0)
[2020-10-02 07:00] VITALS: BP 175/86
[2020-10-02] MEDS: gabapentin 300mg capsule CORPAK SCH ×2 (08:56→20:51)
[2020-10-02] MEDS: linagliptin 5mg tablet CORPAK SCH (08:56)
[2020-10-02] MEDS: cholecalciferol (vitamin D3) 1,000 unit (25mcg) tablet CORPAK SCH (08:57)
[2020-10-02] MEDS: lisinopril 5mg tablet CORPAK SCH (08:57)
[2020-10-02] MEDS: thiamine inj. 100 MG in normal saline 100ml IV soln 100 ML IV SCH (08:58)
[2020-10-02] MEDS: furosemide 40mg/4ml inj IV SCH ×2 (08:58→20:42)
[2020-10-02] MEDS: famotidine/PF 10 mg/ml inj IV SCH (08:58)
[2020-10-02] MEDS: folic acid 1mg/0.2ml inj IV SCH (08:58)
[2020-10-02] MEDS: carVEDilol 3.125mg tablet PO SCH ×2 (08:59→20:50)
[2020-10-02] MEDS: enoxaparin 30mg/0.3ml syringe SUBCUT SCH ×2 (08:59→20:53)
[2020-10-02] MEDS: lactobacillus rhamnosus 10,000 MMU CELLS/CAPSULE PO SCH ×2 (08:59→20:50)
[2020-10-02] MEDS: enoxaparin 100mg/ml syringe SUBCUT SCH ×2 (09:00→20:52)
[2020-10-02] MEDS: insulin Lispro (HumaLOG) vial - multi-dose SQ SCH ×3 (09:11→22:49)
[2020-10-02 11:00] VITALS: BP 149/57
--- NOTE | 2020-10-02 12:14 | NUR ---
III 10/04 BdnDM/HHdefer F/u 10/02: Pt seen by ST leblanc, recommended Mechanical soft diet w/ thin liquids, Corpak discontinued. Will f/u on PO trends and diet tolerance and monitor for additional energy needs. If pt PO intake consistently adequate on regular diet, may recommend CCHO diet. Rectal tube in place per EMR. No nausea or vomiting reported. Per RN, pt A&O x 1, will defer DM diet ed until pt more appropriate. Will continue to monitor. Rec: 1. Continue w/ Mechanical soft diet as tolerated 2. IF pt consistently meeting energy and protein needs, may recommend CCHO diet 3. Bowel care per rx 4. weekly wts 5. DM/HH diet eds deferred until pt more appropriate this admit Addendum: 10/02/20 at [address] Amended: Links added.
--- NOTE | 2020-10-02 13:35 | NUR ---
Problems reprioritized. Patient report given, questions answered & plan of care reviewed with Patt SOTO.
[2020-10-02] MEDS: aspirin 325mg tablet, delayed-release (Ecotrin) PO SCH (13:39)
[2020-10-02 14:10] VITALS: BP 142/72
--- NOTE | 2020-10-02 14:10 | NUR ---
received from PCU by bed ,report was given by Mabel, patient confused oriented to person only. Patient on restraints, appears in no acute distress. Both hands edematous and reddened, with multiple wounds on the right hand and a wound on the left thumb, patient complains of pain when touched on both hands. Bilateral radial pulses strong and palpable. Picc line on right upper arm intact with D5 W infusing at 100cc/ frandy. Pearson cather intact and draining dark carol cloudy urine output
--- NOTE | 2020-10-02 17:45 | NUR ---
Talked to Dr Antoine with regards to use of PICC line with the existence of thrombus on the right arm, he said it is conner to use the PICC line.
[2020-10-02 18:30] VITALS: BP 180/66
--- NOTE | 2020-10-02 18:40 | NUR ---
Patient in room DANYEL 359. I have received report from Patt Reyes and had the opportunity to ask questions and assume patient care.
[2020-10-02] MEDS: atorvastatin 20mg tablet CORPAK SCH (20:49)
[2020-10-02] MEDS: famotidine 20mg tablet PO SCH (20:50)
[2020-10-02] MEDS: quetiapine 100mg tablet CORPAK SCH (20:50)
[2020-10-02] MEDS: insulin glargine (Lantus) pen - multi-dose SQ SCH (22:51)
[2020-10-03] VITALS (7 sets, daily range): BP systolic 78–119; BP diastolic 41–56
[2020-10-03] MEDS: dextrose 5%-water 1,000 ML IV SCH ×3 (01:48→21:25)
[2020-10-03] MEDS: piperacillin/tazo 3.375gm/50ml 50 ML IV SCH ×3 (01:54→15:29)
[2020-10-03] MEDS: vancomycin/NS 1 GM ADD-VANTAGE 250 ML X 1 DOSE IV SCH ×3 (05:55→21:52)
[2020-10-03 06:50] LABS: BASOPHILS % (AUTO) 0.6 % (0-1); EOSINOPHILS # (AUTO) 0.1 X10'3 (0-0.9); EOSINOPHILS % (AUTO) 1.2 % (0-6); LYMPHOCYTES # (AUTO) 1.1 X10'3 (1.1-4.8); LYMPHOCYTES % (AUTO) 20.2 % (21-51); MEAN CORPUSCULAR HEMOGLOBIN 32.7 PG (27.0-31.0); MEAN CORPUSCULAR HGB CONC 33.9 g/dL (33.0-36.5); MEAN CORPUSCULAR VOLUME 96.6 FL (78-98); MEAN PLATELET VOLUME 7.6 FL (7.4-10.4); MONOCYTES # (AUTO) 0.5 X10'3 (0-0.9); MONOCYTES % (AUTO) 9.4 % (2-12); NEUTROPHILS # (AUTO) 3.8 X10'3 (1.8-7.7); NEUTROPHILS % (AUTO) 68.6 % (42-75); PLATELET COUNT 151 X10'3 (140-440); RED CELL DISTRIBUTION WIDTH 16.1 % (11.5-14.5); WHITE BLOOD COUNT 5.6 X10'3 (4.5-11.0)
[2020-10-03 06:57] LABS: HEMOGLOBIN 6.9 g/dl (14.0-17.9)
[2020-10-03 06:58] LABS: HEMATOCRIT 20.3 % (42.0-52.0)
[2020-10-03 07:12] LABS: ALANINE AMINOTRANSFERASE 28 U/L (12-78); ALBUMIN 1.4 G/DL (3.4-5.0); ALBUMIN/GLOBULIN RATIO 0.3 (1.1-1.5); ALKALINE PHOSPHATASE 127 IU/L (46-116); ANION GAP 6 (8-16); ASPARTATE AMINO TRANSFERASE 36 U/L (10-37); BLOOD UREA NITROGEN 21 MG/DL (7-18); BUN/CREATININE RATIO 23.6 (5.4-32.0); CALCIUM 7.5 MG/DL (8.5-10.1); CHLORIDE 104 MMOL/L (99-107); CREATININE 0.89 MG/DL (0.60-1.10); GLUCOSE 195 MG/DL (70-104); MAGNESIUM 1.6 MG/DL (1.5-2.4); PHOSPHORUS 4.2 MG/DL (2.3-4.5); POTASSIUM 3.5 MMOL/L (3.5-5.1); PREALBUMIN 6.4 MG/DL (19-36); SODIUM 138 MMOL/L (135-145); TOTAL CARBON DIOXIDE 28.3 MMOL/L (24-32); TOTAL PROTEIN 6.4 G/DL (6.4-8.2); eGFR 86 ML/MIN
--- NOTE | 2020-10-03 07:13 | NUR ---
Critical H/H PAGER ID: [phone] MESSAGE: Jane 359A, Michael Dias. H/H . Thanks, Michelle [phone]
--- NOTE | 2020-10-03 07:18 | NUR ---
Patient in room DANYEL 359. I have received report from BRITTANY ARRIOLA, and had the opportunity to ask questions and assume patient care.
[2020-10-03] MEDS: thiamine inj. 100 MG in normal saline 100ml IV soln 100 ML IV SCH (09:06)
[2020-10-03] MEDS: enoxaparin 100mg/ml syringe SUBCUT SCH (09:07)
[2020-10-03] MEDS: enoxaparin 30mg/0.3ml syringe SUBCUT SCH (09:08)
[2020-10-03] MEDS: lactobacillus rhamnosus 10,000 MMU CELLS/CAPSULE PO SCH ×2 (09:11→19:37)
[2020-10-03] MEDS: cholecalciferol (vitamin D3) 1,000 unit (25mcg) tablet CORPAK SCH (09:11)
[2020-10-03] MEDS: famotidine 20mg tablet PO SCH ×2 (09:11→19:40)
[2020-10-03] MEDS: gabapentin 300mg capsule CORPAK SCH ×2 (09:11→19:40)
[2020-10-03] MEDS: furosemide 40mg/4ml inj IV SCH ×2 (09:32→19:40)
[2020-10-03] MEDS: carVEDilol 3.125mg tablet PO SCH ×2 (09:33→19:40)
[2020-10-03] MEDS: lisinopril 5mg tablet CORPAK SCH (09:33)
[2020-10-03] MEDS: aspirin 325mg tablet, delayed-release (Ecotrin) PO SCH (10:27)
[2020-10-03] MEDS: linagliptin 5mg tablet CORPAK SCH (10:27)
[2020-10-03] MEDS: insulin Lispro (HumaLOG) vial - multi-dose SQ SCH ×3 (10:55→20:39)
[2020-10-03 11:16] LABS: HEMOGLOBIN 7.3 g/dl (14.0-17.9); MEAN CORPUSCULAR HEMOGLOBIN 32.4 PG (27.0-31.0); MEAN CORPUSCULAR HGB CONC 33.6 g/dL (33.0-36.5); MEAN CORPUSCULAR VOLUME 96.3 FL (78-98); MEAN PLATELET VOLUME 7.4 FL (7.4-10.4); PLATELET COUNT 154 X10'3 (140-440); RED BLOOD COUNT 2.26 X10'6 (4.70-6.10); RED CELL DISTRIBUTION WIDTH 15.8 % (11.5-14.5); WHITE BLOOD COUNT 6.1 X10'3 (4.5-11.0)
[2020-10-03 11:22] LABS: HEMATOCRIT 21.7 % (42.0-52.0)
--- NOTE | 2020-10-03 11:30 | NUR ---
Critical Hct .7 PAGER ID: [phone] MESSAGE: Jane 359A, Michael Dias. Critical Hct .. Thanks, Michelle [phone]
[2020-10-03] MEDS: folic acid 1mg/0.2ml inj IV SCH (13:24)
[2020-10-03 17:43] LABS: HEMOGLOBIN 7.2 g/dl (14.0-17.9); MEAN CORPUSCULAR HEMOGLOBIN 32.5 PG (27.0-31.0); MEAN CORPUSCULAR HGB CONC 33.6 g/dL (33.0-36.5); MEAN CORPUSCULAR VOLUME 96.7 FL (78-98); MEAN PLATELET VOLUME 7.5 FL (7.4-10.4); PLATELET COUNT 173 X10'3 (140-440); RED BLOOD COUNT 2.21 X10'6 (4.70-6.10); RED CELL DISTRIBUTION WIDTH 16.1 % (11.5-14.5)
[2020-10-03 17:51] LABS: HEMATOCRIT 21.4 % (42.0-52.0)
--- NOTE | 2020-10-03 17:53 | NUR ---
PAGER ID: [phone] MESSAGE: Jane 359A, Michael Dias. Critical Hct . Thanks, Michelle [phone]
--- NOTE | 2020-10-03 18:26 | NUR ---
Problems reprioritized. Patient report given, questions answered & plan of care reviewed with BRITTANY FREEMAN.
--- NOTE | 2020-10-03 18:40 | NUR ---
Orientee documentation: I have reviewed and agree with all interventions, assessments performed and documented by BRITTANY Cantu.
--- NOTE | 2020-10-03 18:45 | NUR ---
Patient in room DANYEL 359. I have received report from MONIKA SOTO AND OZ SOTO and had the opportunity to ask questions and assume patient care.
[2020-10-03] MEDS: acetaminophen 325mg tablet CORPAK PRN (19:40)
[2020-10-03] MEDS: atorvastatin 20mg tablet CORPAK SCH (21:52)
[2020-10-03] MEDS: quetiapine 100mg tablet CORPAK SCH (21:52)
[2020-10-03] MEDS: insulin glargine (Lantus) pen - multi-dose SQ SCH (22:52)
--- NOTE | 2020-10-03 23:00 | NUR ---
PATIENT'S BP 72/43 HR 66 RR 16 SATS 96% @RA PATIENT LESS RESPONSIVE HE WAS, CALLED RAPID RESPONSE AND TEAM CAME WITH ORDERS.
[2020-10-03] MEDS ORDERED: normal saline 500ml IV soln 500 ML IV ONE ×2 (23:20→23:30)
[2020-10-04] VITALS (13 sets, daily range): BP systolic 72–129; BP diastolic 42–63
[2020-10-04] MEDS: piperacillin/tazo 3.375gm/50ml 50 ML IV SCH ×2 (01:36→08:58)
[2020-10-04] MEDS: vancomycin/NS 1 GM ADD-VANTAGE 250 ML X 1 DOSE IV SCH (05:26)
--- NOTE | 2020-10-04 06:30 | NUR ---
Problems reprioritized. Patient report given, questions answered & plan of care reviewed with MONIKA SOTO AND OZ SOTO.
[2020-10-04 06:49] LABS: BASOPHILS % (AUTO) 0.6 % (0-1); EOSINOPHILS # (AUTO) 0.1 X10'3 (0-0.9); EOSINOPHILS % (AUTO) 1.3 % (0-6); HEMATOCRIT 23.8 % (42.0-52.0); HEMOGLOBIN 8.1 g/dl (14.0-17.9); LYMPHOCYTES # (AUTO) 1.2 X10'3 (1.1-4.8); LYMPHOCYTES % (AUTO) 21.4 % (21-51); MEAN CORPUSCULAR HEMOGLOBIN 32.1 PG (27.0-31.0); MEAN CORPUSCULAR HGB CONC 34.3 g/dL (33.0-36.5); MEAN CORPUSCULAR VOLUME 93.6 FL (78-98); MEAN PLATELET VOLUME 7.8 FL (7.4-10.4); MONOCYTES # (AUTO) 0.6 X10'3 (0-0.9); MONOCYTES % (AUTO) 11.4 % (2-12); NEUTROPHILS # (AUTO) 3.6 X10'3 (1.8-7.7); NEUTROPHILS % (AUTO) 65.3 % (42-75); PLATELET COUNT 154 X10'3 (140-440); RED BLOOD COUNT 2.54 X10'6 (4.70-6.10); RED CELL DISTRIBUTION WIDTH 15.4 % (11.5-14.5); WHITE BLOOD COUNT 5.5 X10'3 (4.5-11.0)
[2020-10-04] MEDS ORDERED: acetaminophen 325mg tablet PO PRN (06:54)
[2020-10-04] MEDS ORDERED: dextrose ORAL solution 15 GM/59 ML bottle PO PRN ×2 (06:54→06:55)
[2020-10-04] MEDS ORDERED: POTASSIUM BICARB 20meq eff tab 20 MEQ TABLET.EFF PO PRN (06:57)
[2020-10-04 07:35] LABS: ALANINE AMINOTRANSFERASE 29 U/L (12-78); ALBUMIN 1.4 G/DL (3.4-5.0); ALBUMIN/GLOBULIN RATIO 0.3 (1.1-1.5); ALKALINE PHOSPHATASE 132 IU/L (46-116); ANION GAP 7 (8-16); ASPARTATE AMINO TRANSFERASE 52 U/L (10-37); BLOOD UREA NITROGEN 21 MG/DL (7-18); BUN/CREATININE RATIO 23.1 (5.4-32.0); CALCIUM 7.4 MG/DL (8.5-10.1); CHLORIDE 104 MMOL/L (99-107); CREATININE 0.91 MG/DL (0.60-1.10); GLUCOSE 111 MG/DL (70-104); MAGNESIUM 1.5 MG/DL (1.5-2.4); PHOSPHORUS 4.4 MG/DL (2.3-4.5); POTASSIUM 3.4 MMOL/L (3.5-5.1); SODIUM 138 MMOL/L (135-145); TOTAL CARBON DIOXIDE 27.3 MMOL/L (24-32); TOTAL PROTEIN 6.5 G/DL (6.4-8.2); eGFR 84 ML/MIN
[2020-10-04] MEDS: lisinopril 5mg tablet PO SCH (08:00)
[2020-10-04] MEDS: folic acid 1mg/0.2ml inj IV SCH (08:58)
[2020-10-04] MEDS: thiamine inj. 100 MG in normal saline 100ml IV soln 100 ML IV SCH (08:58)
[2020-10-04] MEDS: cholecalciferol (vitamin D3) 1,000 unit (25mcg) tablet PO SCH (08:59)
[2020-10-04] MEDS: aspirin 325mg tablet, delayed-release (Ecotrin) PO SCH (08:59)
[2020-10-04] MEDS: linagliptin 5mg tablet PO SCH (09:00)
[2020-10-04] MEDS: gabapentin 300mg capsule PO SCH ×2 (09:01→20:26)
[2020-10-04] MEDS: lactobacillus rhamnosus 10,000 MMU CELLS/CAPSULE PO SCH ×2 (09:01→20:26)
[2020-10-04] MEDS: acetaminophen 325mg tablet PO PRN (09:01)
[2020-10-04] MEDS: famotidine 20mg tablet PO SCH ×2 (09:01→20:27)
[2020-10-04] MEDS: carVEDilol 3.125mg tablet PO SCH ×2 (09:03→20:00)
[2020-10-04] MEDS: POTASSIUM BICARB 20meq eff tab 20 MEQ TABLET.EFF PO PRN ×3 (09:16→17:32)
[2020-10-04] MEDS: insulin Lispro (HumaLOG) vial - multi-dose SQ SCH ×3 (09:20→18:41)
--- NOTE | 2020-10-04 12:22 | NUR ---
Reassessment: Pt A/O x 2 and confused, in restraints with a sitter at bedside per EMR. DM education remains deferred at this time. Pt continues on SB6 CHO controlled diet with thin liquids per ST recs, currently averaging 50-75% PO intake, fairy well considering ALOC. LBM 10/03 per I&O. Will continue to follow closely and monitor need for nutrition intervention pending further trends in PO intake. Rec: 1. Continue SB6 CHO controlled diet with thin liquids per ST recs 2. Monitor need for additional protein/ONS 3. Bowel care per rx 4. Weekly scaled weights 5. DM education once stable, A1c 8.0% Addendum: 10/04/20 at [address] Amended: Links added.
[2020-10-04] MEDS: furosemide 40mg/4ml inj IV SCH ×2 (12:35→20:00)
[2020-10-04] MEDS: normal saline 1000ml 1,000 ML IV SCH ×3 (14:01→23:39)
[2020-10-04] MEDS: ceFAZolin/D5W- 1GM premix 50 ML IV SCH ×2 (15:43→23:44)
--- NOTE | 2020-10-04 17:52 | NUR ---
1400 restraint orders entered in error. Column's corrections were done in the following minute. ie:1400 to 1401. The restraints were removed and the pt was closely watched by roommates sitter. Restraints remain off. Continuing to monitor.
--- NOTE | 2020-10-04 18:16 | NUR ---
Orientee documentation: I have reviewed and agree with all interventions, assessments performed and documented by BRITTANY Cantu.
--- NOTE | 2020-10-04 18:26 | NUR ---
Problems reprioritized. Patient report given, questions answered & plan of care reviewed with BRITTANY MARTINO.
[2020-10-04] MEDS: atorvastatin 20mg tablet PO SCH (20:26)
[2020-10-04] MEDS: quetiapine 100mg tablet PO SCH (20:27)
[2020-10-04] MEDS: insulin glargine (Lantus) pen - multi-dose SQ SCH (21:28)
[2020-10-05] VITALS: BP_SYST 101; BP_DIAS 51; BP_DIAS 63
[2020-10-05 06:02] LABS: BASOPHILS % (AUTO) 0.6 % (0-1); EOSINOPHILS # (AUTO) 0.1 X10'3 (0-0.9); EOSINOPHILS % (AUTO) 0.9 % (0-6); HEMOGLOBIN 7.5 g/dl (14.0-17.9); LYMPHOCYTES # (AUTO) 1.5 X10'3 (1.1-4.8); MEAN CORPUSCULAR HEMOGLOBIN 32.3 PG (27.0-31.0); MEAN CORPUSCULAR HGB CONC 33.9 g/dL (33.0-36.5); MEAN CORPUSCULAR VOLUME 95.3 FL (78-98); MEAN PLATELET VOLUME 7.7 FL (7.4-10.4); MONOCYTES # (AUTO) 0.7 X10'3 (0-0.9); MONOCYTES % (AUTO) 12.7 % (2-12); NEUTROPHILS # (AUTO) 3.3 X10'3 (1.8-7.7); NEUTROPHILS % (AUTO) 58.8 % (42-75); PLATELET COUNT 171 X10'3 (140-440); RED BLOOD COUNT 2.31 X10'6 (4.70-6.10); RED CELL DISTRIBUTION WIDTH 15.8 % (11.5-14.5); WHITE BLOOD COUNT 5.5 X10'3 (4.5-11.0)
[2020-10-05 06:20] LABS: ALANINE AMINOTRANSFERASE 33 U/L (12-78); ALBUMIN 1.3 G/DL (3.4-5.0); ALBUMIN/GLOBULIN RATIO 0.3 (1.1-1.5); ALKALINE PHOSPHATASE 174 IU/L (46-116); ANION GAP 5 (8-16); ASPARTATE AMINO TRANSFERASE 75 U/L (10-37); BILIRUBIN,TOTAL 0.8 MG/DL (0.1-1.0); BLOOD UREA NITROGEN 21 MG/DL (7-18); BUN/CREATININE RATIO 24.1 (5.4-32.0); CALCIUM 7.2 MG/DL (8.5-10.1); CHLORIDE 105 MMOL/L (99-107); CREATININE 0.87 MG/DL (0.60-1.10); GLUCOSE 105 MG/DL (70-104); MAGNESIUM 1.5 MG/DL (1.5-2.4); PHOSPHORUS 3.7 MG/DL (2.3-4.5); POTASSIUM 3.5 MMOL/L (3.5-5.1); SODIUM 138 MMOL/L (135-145); TOTAL CARBON DIOXIDE 27.9 MMOL/L (24-32); TOTAL PROTEIN 6.5 G/DL (6.4-8.2); eGFR 89 ML/MIN
--- NOTE | 2020-10-05 06:48 | NUR ---
I have received report from Ewa SOTO and had the opportunity to ask questions and assume patient care.
[2020-10-05] MEDS: ceFAZolin/D5W- 1GM premix 50 ML IV SCH ×2 (07:57→16:18)
[2020-10-05] MEDS: furosemide 40mg/4ml inj IV SCH ×2 (07:57→20:45)
[2020-10-05 08:00] VITALS: BP 108/58
[2020-10-05] MEDS: lisinopril 5mg tablet PO SCH (08:00)
[2020-10-05] MEDS: gabapentin 300mg capsule PO SCH ×2 (08:02→20:45)
[2020-10-05] MEDS: famotidine 20mg tablet PO SCH ×2 (08:02→20:45)
[2020-10-05] MEDS: linagliptin 5mg tablet PO SCH (08:02)
[2020-10-05] MEDS: cholecalciferol (vitamin D3) 1,000 unit (25mcg) tablet PO SCH (08:02)
[2020-10-05] MEDS: lactobacillus rhamnosus 10,000 MMU CELLS/CAPSULE PO SCH ×2 (08:02→20:45)
[2020-10-05] MEDS: aspirin 325mg tablet, delayed-release (Ecotrin) PO SCH (08:02)
[2020-10-05] MEDS: carVEDilol 3.125mg tablet PO SCH ×3 (08:03→21:01)
[2020-10-05] MEDS: folic acid 1mg/0.2ml inj IV SCH (09:08)
[2020-10-05] MEDS: thiamine 100mg tablet PO SCH (09:17)
--- NOTE | 2020-10-05 11:12 | NUR ---
No coverage for breakfast. Patient didn't get a meal tray until late. Accu check was 0 unit.
[2020-10-05 12:02] VITALS: BP 92/40
--- NOTE | 2020-10-05 13:14 | NUR ---
PAGER ID: [phone] MESSAGE: [id number] Arun his BP is 92/40, has Lasix 40 mg BID. Held Lisinopril this AM. Hct was 22 today. Jasmin [phone]
[2020-10-05] MEDS: insulin Lispro (HumaLOG) vial - multi-dose SQ SCH ×2 (13:26→19:12)
--- NOTE | 2020-10-05 16:00 | NUR ---
O2 Sat at rest on room air:_84__% If below 89%: Recovery O2 Sat at rest on _2__LPM: 98%:___% via_NC_(mask/nasal cannula, etc..) No further documentation is necessary. If O2 Sat did not drop below 89% on room air,ambulate patient on room air. O2 Sat while ambulating on room air:___% Recovery O2 Sat while ambulating on ___LPM:___% No further documentation is necessary. If patient does not drop below 89% while ambulating, he/she does not qualify for home O2.
--- NOTE | 2020-10-05 18:13 | NUR ---
Problems reprioritized. Patient report given, questions answered & plan of care reviewed with Ani SOTO.
--- NOTE | 2020-10-05 18:31 | NUR ---
Patient in room DANYEL 359. I have received report from Jasmin SOTO and had the opportunity to ask questions and assume patient care.
[2020-10-05 19:00] VITALS: BP 107/59
[2020-10-05] MEDS: normal saline 1000ml 1,000 ML IV SCH (19:20)
[2020-10-05] MEDS: atorvastatin 20mg tablet PO SCH (20:46)
[2020-10-05] MEDS: quetiapine 100mg tablet PO SCH (20:46)
[2020-10-05 21:00] VITALS: BP 115/63
[2020-10-05] MEDS: acetaminophen 325mg tablet PO PRN (21:02)
[2020-10-05] MEDS: insulin glargine (Lantus) pen - multi-dose SQ SCH (21:18)
[2020-10-06] MEDS: ceFAZolin/D5W- 1GM premix 50 ML IV SCH ×4 (00:24→23:23)
[2020-10-06 00:29] VITALS: BP 87/55
[2020-10-06 03:46] VITALS: BP 103/55
[2020-10-06] MEDS: normal saline 1000ml 1,000 ML IV SCH ×3 (03:47→22:00)
--- NOTE | 2020-10-06 03:55 | NUR ---
Unable to draw from Picc line.
[2020-10-06 05:55] LABS: BASOPHILS % (AUTO) 0.8 % (0-1); EOSINOPHILS # (AUTO) 0.1 X10'3 (0-0.9); EOSINOPHILS % (AUTO) 1.1 % (0-6); HEMOGLOBIN 7.4 g/dl (14.0-17.9); LYMPHOCYTES # (AUTO) 1.6 X10'3 (1.1-4.8); LYMPHOCYTES % (AUTO) 27.3 % (21-51); MEAN CORPUSCULAR HEMOGLOBIN 32.7 PG (27.0-31.0); MEAN CORPUSCULAR HGB CONC 33.8 g/dL (33.0-36.5); MEAN CORPUSCULAR VOLUME 96.8 FL (78-98); MEAN PLATELET VOLUME 7.3 FL (7.4-10.4); MONOCYTES # (AUTO) 0.8 X10'3 (0-0.9); MONOCYTES % (AUTO) 13.6 % (2-12); NEUTROPHILS # (AUTO) 3.2 X10'3 (1.8-7.7); NEUTROPHILS % (AUTO) 57.2 % (42-75); PLATELET COUNT 185 X10'3 (140-440); RED BLOOD COUNT 2.27 X10'6 (4.70-6.10); RED CELL DISTRIBUTION WIDTH 15.7 % (11.5-14.5); WHITE BLOOD COUNT 5.7 X10'3 (4.5-11.0)
[2020-10-06 06:18] LABS: ALANINE AMINOTRANSFERASE 36 U/L (12-78); ALBUMIN 1.3 G/DL (3.4-5.0); ALBUMIN/GLOBULIN RATIO 0.3 (1.1-1.5); ALKALINE PHOSPHATASE 230 IU/L (46-116); ANION GAP 9 (8-16); ASPARTATE AMINO TRANSFERASE 85 U/L (10-37); BLOOD UREA NITROGEN 21 MG/DL (7-18); BUN/CREATININE RATIO 23.3 (5.4-32.0); CALCIUM 7.1 MG/DL (8.5-10.1); CHLORIDE 106 MMOL/L (99-107); GLUCOSE 110 MG/DL (70-104); MAGNESIUM 1.6 MG/DL (1.5-2.4); PHOSPHORUS 3.8 MG/DL (2.3-4.5); POTASSIUM 3.6 MMOL/L (3.5-5.1); SODIUM 142 MMOL/L (135-145); TOTAL CARBON DIOXIDE 27.3 MMOL/L (24-32); TOTAL PROTEIN 6.5 G/DL (6.4-8.2); eGFR 85 ML/MIN
--- NOTE | 2020-10-06 06:20 | NUR ---
Problems reprioritized. Patient report given, questions answered & plan of care reviewed with Jasmin SOTO.
--- NOTE | 2020-10-06 06:46 | NUR ---
I have received report from NOC shift RN and had the opportunity to ask questions and assume patient care.
[2020-10-06 07:13] VITALS: BP 107/63
[2020-10-06] MEDS: furosemide 40mg/4ml inj IV SCH ×2 (07:32→21:00)
[2020-10-06] MEDS: linagliptin 5mg tablet PO SCH (07:34)
[2020-10-06] MEDS: lactobacillus rhamnosus 10,000 MMU CELLS/CAPSULE PO SCH ×2 (07:34→21:00)
[2020-10-06] MEDS: cholecalciferol (vitamin D3) 1,000 unit (25mcg) tablet PO SCH (07:34)
[2020-10-06] MEDS: thiamine 100mg tablet PO SCH (07:34)
[2020-10-06] MEDS: carVEDilol 3.125mg tablet PO SCH ×2 (07:34→21:00)
[2020-10-06] MEDS: aspirin 325mg tablet, delayed-release (Ecotrin) PO SCH (07:34)
[2020-10-06] MEDS: famotidine 20mg tablet PO SCH ×2 (07:34→21:00)
[2020-10-06] MEDS: gabapentin 300mg capsule PO SCH ×2 (07:34→21:00)
[2020-10-06] MEDS: folic acid 1mg/0.2ml inj IV SCH (07:35)
[2020-10-06] MEDS: insulin Lispro (HumaLOG) vial - multi-dose SQ SCH ×2 (10:19→14:46)
[2020-10-06 10:45] VITALS: BP 107/53
[2020-10-06 11:53] VITALS: BP 107/53
--- NOTE | 2020-10-06 18:35 | NUR ---
Patient refusing VS for NOC shift.
--- NOTE | 2020-10-06 19:17 | NUR ---
refused Addendum: 10/06/20 at 1918 by Jasmin Rivera RN Amended: Links added.
[2020-10-06] MEDS: pantoprazole 40mg Tablet.DR PO SCH (21:00)
[2020-10-06] MEDS: quetiapine 100mg tablet PO SCH (21:00)
[2020-10-06] MEDS: atorvastatin 20mg tablet PO SCH (21:00)
[2020-10-06] MEDS: insulin glargine (Lantus) pen - multi-dose SQ SCH (21:08)
[2020-10-06 21:15] VITALS: BP 128/73
--- NOTE | 2020-10-06 21:15 | NUR ---
Patient became SOB and wanted to be adjusted in bed. Do to patient size I had to call for help, patient became more SOB and tried to adjust himself, patient seemed to vasovagal. Patient became alert after a few seconds. Patient started talking, VS were WNL, see VS charting. RT paged for treatment. Patient is talking and stating "Thank you for saving me." Will continue to monitor.
[2020-10-06] MEDS: albuterol 2.5 MG/3 ML nebule NEB PRN (21:35)
--- NOTE | 2020-10-06 23:49 | NUR ---
Problems reprioritized. Patient report given, questions answered & plan of care reviewed with Ani SOTO.
--- NOTE | 2020-10-06 23:50 | NUR ---
Patient in room [facility]. I have received report from Jasmin SOTO and had the opportunity to ask questions and assume patient care. I have assessed patient and agree with earlier findings. Patient is currently sleeping with eyes closed and respirations steady. Bed is low/locked and SR x2 up, with call light within reach.
[2020-10-07] VITALS (13 sets, daily range): BP systolic 85–147; BP diastolic 43–77
--- NOTE | 2020-10-07 01:28 | NUR ---
Stool sample collected and sent down to lab for Hemoccult
[2020-10-07 01:41] LABS: OCCULT BLOOD STOOL NEGATIVE (Neg)
[2020-10-07] MEDS: normal saline 1000ml 1,000 ML IV SCH (05:32)
--- NOTE | 2020-10-07 05:45 | NUR ---
Patient found with his picc line pulled out. No bleeding from ppicc insertion site, but pt. has a small skin tear from removing his own dressing. Both sites now with dressings in place. can dragger started new 20 gauge PIV to RFA and fluids are now re-infusing.
--- NOTE | 2020-10-07 06:20 | NUR ---
Problems reprioritized. Patient report given, questions answered & plan of care reviewed with Marci SOTO.
[2020-10-07 07:14] LABS: BASOPHILS % (AUTO) 0.8 % (0-1); EOSINOPHILS # (AUTO) 0.1 X10'3 (0-0.9); EOSINOPHILS % (AUTO) 1.1 % (0-6); HEMOGLOBIN 7.3 g/dl (14.0-17.9); LYMPHOCYTES # (AUTO) 1.6 X10'3 (1.1-4.8); MEAN CORPUSCULAR HGB CONC 33.7 g/dL (33.0-36.5); MEAN CORPUSCULAR VOLUME 95.1 FL (78-98); MEAN PLATELET VOLUME 7.2 FL (7.4-10.4); MONOCYTES # (AUTO) 0.6 X10'3 (0-0.9); MONOCYTES % (AUTO) 11.9 % (2-12); NEUTROPHILS # (AUTO) 2.9 X10'3 (1.8-7.7); NEUTROPHILS % (AUTO) 56.2 % (42-75); PLATELET COUNT 195 X10'3 (140-440); RED BLOOD COUNT 2.29 X10'6 (4.70-6.10); RED CELL DISTRIBUTION WIDTH 15.5 % (11.5-14.5); WHITE BLOOD COUNT 5.2 X10'3 (4.5-11.0)
[2020-10-07 07:17] LABS: HEMATOCRIT 21.8 % (42.0-52.0)
--- NOTE | 2020-10-07 07:19 | NUR ---
PAGER ID: [phone] MESSAGE: Marci-Surg [id number] Re: Arun HCT 21.8 Type and screen
--- NOTE | 2020-10-07 07:45 | NUR ---
PAGER ID: [phone] MESSAGE: Marci-Surg [id number] Re: Arun 359A BP 85-63 HR 94 wont let me take manual very argumentative. Holding Lasix and Coreg
[2020-10-07] MEDS: furosemide 40mg/4ml inj IV SCH ×2 (07:46→20:46)
[2020-10-07] MEDS: carVEDilol 3.125mg tablet PO SCH ×2 (07:46→20:43)
[2020-10-07] MEDS: aspirin 325mg tablet, delayed-release (Ecotrin) PO SCH (08:00)
[2020-10-07] MEDS: linagliptin 5mg tablet PO SCH (08:00)
[2020-10-07] MEDS: cholecalciferol (vitamin D3) 1,000 unit (25mcg) tablet PO SCH (08:00)
[2020-10-07] MEDS: lactobacillus rhamnosus 10,000 MMU CELLS/CAPSULE PO SCH ×2 (08:57→20:38)
[2020-10-07] MEDS: thiamine 100mg tablet PO SCH (08:57)
[2020-10-07] MEDS: pantoprazole 40mg Tablet.DR PO SCH ×2 (08:57→20:39)
[2020-10-07] MEDS: famotidine 20mg tablet PO SCH ×2 (08:57→20:39)
[2020-10-07] MEDS: gabapentin 300mg capsule PO SCH ×2 (08:57→20:38)
[2020-10-07] MEDS: ceFAZolin/D5W- 1GM premix 50 ML IV SCH ×3 (09:11→23:40)
[2020-10-07] MEDS: folic acid 1mg/0.2ml inj IV SCH (09:12)
--- NOTE | 2020-10-07 10:02 | NUR ---
Dr Gil on the unit to see patient. Dr Gil aware patient pulled out his PICC line on NOC shift from the arm that has a DVT. Dr Gil aware I held ASA Coreg and Lasix due to patients BP and also due to possible EGD today. Dr Gil aware patient has NS running at 100ml's /hr and received orders when patient is no longer NPO to go ahead and S/L IV fluids.
--- NOTE | 2020-10-07 10:33 | NUR ---
Deb with GI lab aware patient has moments of confusion and forgetful at times. Son is in the room with patient and will stay with patient in GI for consent. Deb aware he has to go down via gurney he is a max assist with PT>
[2020-10-07] MEDS ORDERED: LIDOcaine Viscous 15ml cup ONE (11:57)
[2020-10-07] MEDS ORDERED: MIDAZolam 1 MG/ML 5ML VIAL ONE (11:57)
[2020-10-07] MEDS ORDERED: fentaNYL/PF 50MCG/1 ML 2ML syringe ONE (11:57)
--- NOTE | 2020-10-07 13:23 | NUR ---
PAGER ID: [phone] MESSAGE: Marci-Surg [id number] Re: [id number] Arun is back from GI please call re: diet and patient needs a nicotine patch
--- NOTE | 2020-10-07 14:27 | NUR ---
PAGER ID: [phone] MESSAGE: Marci Surg [id number] Re: Arun please call re: diet and Nicotine patch.
[2020-10-07] MEDS ORDERED: furosemide 40mg/4ml inj IV ONE (14:40)
[2020-10-07] MEDS: nicotine 14mg patch - 24hr TD SCH (15:13)
--- NOTE | 2020-10-07 15:15 | NUR ---
Physical Therapy working with patient and patient was screaming at them and screaming to call the police. I went into patients room and patient was lying in his bed and physical therapy was assisting patient up in bed patient was laying on his left side with his arm and leg over the railing. I was assisting patient for better positioning and patient was threatening to spit on me. Physical therapy left the room and patient continued to yell at me using foul language. Patient stated he wants to go home. I advised patient he is here because he is sick and he is not able to walk on his own. Patients christopher Martinez was called and advised of the above situation. Juan is ok with us giving patient Haldol to help him relax. During this time the community health coordinator, tag press operator Jennie and another RN Harley were in patients room to help patient calm down. Patient did try and spit at tag press operator and Harley RN. Security informed. Patients christopher Martinez called me back after speaking with the patient and said he will be here in approx 15 min. Received call from Dr Gil and received orders for 5mg IM Haldol. Assisted by Nursing staff and administered Haldol per MD orders.
--- NOTE | 2020-10-07 15:35 | NUR ---
PAGER ID: [phone] MESSAGE: Marci-Surg [id number] Re: [id number] Arun can we please get Marisabell
[2020-10-07] MEDS ORDERED: haloperidol lactate 5mg/ml inj IM ONE (15:40)
--- NOTE | 2020-10-07 15:57 | NUR ---
F/u 10/07: Pt PO improved past two days 75-100% avg SB6/carb controlled diet up from prior ~50% avg fluctuating intake; no longer in restraints and moderate to max assist at meals per EMR. Noted pt made NPO then advanced to full liquids today s/p upper endoscopy for concerns of GI bleed per EMR; pending GI note at this time. Given pt fluctuating intake hx RD recommends Glucerna TIDWM; notified. LBM 10/06. Pt remains ALOC AOx1/confused per EMR; not appropriate for DM ed. Will monitor for PO diet advancement and tolerance s/p upper endoscopy. Rec: 1. advance to SB6 CHO controlled diet with thin liquids per ST/ recs 2. Glucerna ONS TIDWM; pending MD verification in EMR 3. Bowel care per rx 4. Weekly scaled weights 5. DM education deferred until pt appropriate, A1c 8.0% Addendum: 10/07/20 at [address] Amended: Links added.
[2020-10-07] MEDS: NUT.TX.GLUC.INTOLER,LAC-FR,SOY (GLUCERNA) 237 ML PO SCH (18:00)
--- NOTE | 2020-10-07 18:23 | NUR ---
Problems reprioritized. Patient report given, questions answered & plan of care reviewed with Ani SOTO.
--- NOTE | 2020-10-07 18:30 | NUR ---
Patient in room [facility]. I have received report from Marci SOTO and had the opportunity to ask questions and assume patient care.
[2020-10-07] MEDS: quetiapine 100mg tablet PO SCH (20:39)
[2020-10-07] MEDS: atorvastatin 20mg tablet PO SCH (20:39)
[2020-10-07] MEDS: acetaminophen 325mg tablet PO PRN (20:40)
[2020-10-07] MEDS: insulin glargine (Lantus) pen - multi-dose SQ SCH (22:51)
[2020-10-08] VITALS (9 sets, daily range): BP systolic 111–136; BP diastolic 51–84
[2020-10-08 06:03] LABS: BASOPHILS % (AUTO) 0.7 % (0-1); EOSINOPHILS # (AUTO) 0.1 X10'3 (0-0.9); EOSINOPHILS % (AUTO) 1.4 % (0-6); LYMPHOCYTES # (AUTO) 1.4 X10'3 (1.1-4.8); LYMPHOCYTES % (AUTO) 28.2 % (21-51); MEAN CORPUSCULAR HEMOGLOBIN 31.9 PG (27.0-31.0); MEAN CORPUSCULAR HGB CONC 33.6 g/dL (33.0-36.5); MEAN CORPUSCULAR VOLUME 94.8 FL (78-98); MEAN PLATELET VOLUME 6.7 FL (7.4-10.4); MONOCYTES # (AUTO) 0.8 X10'3 (0-0.9); MONOCYTES % (AUTO) 15.5 % (2-12); NEUTROPHILS # (AUTO) 2.8 X10'3 (1.8-7.7); NEUTROPHILS % (AUTO) 54.2 % (42-75); PLATELET COUNT 202 X10'3 (140-440); RED BLOOD COUNT 2.18 X10'6 (4.70-6.10); RED CELL DISTRIBUTION WIDTH 15.6 % (11.5-14.5); WHITE BLOOD COUNT 5.1 X10'3 (4.5-11.0)
[2020-10-08 06:11] LABS: HEMATOCRIT 20.7 % (42.0-52.0)
[2020-10-08] MEDS: normal saline 1000ml 1,000 ML IV SCH (06:44)
--- NOTE | 2020-10-08 06:50 | NUR ---
Patient in room [facility]. I have received report from BRITTANY Law and had the opportunity to ask questions and assume patient care.
[2020-10-08] MEDS: NUT.TX.GLUC.INTOLER,LAC-FR,SOY (GLUCERNA) 237 ML PO SCH ×3 (08:00→18:00)
[2020-10-08] MEDS: gabapentin 300mg capsule PO SCH ×2 (09:17→22:21)
[2020-10-08] MEDS: famotidine 20mg tablet PO SCH ×2 (09:17→22:21)
[2020-10-08] MEDS: cholecalciferol (vitamin D3) 1,000 unit (25mcg) tablet PO SCH (09:17)
[2020-10-08] MEDS: thiamine 100mg tablet PO SCH (09:17)
[2020-10-08] MEDS: furosemide 40mg/4ml inj IV SCH ×2 (09:17→22:20)
[2020-10-08] MEDS: pantoprazole 40mg Tablet.DR PO SCH ×2 (09:17→22:31)
[2020-10-08] MEDS: carVEDilol 3.125mg tablet PO SCH ×2 (09:18→22:20)
[2020-10-08] MEDS: aspirin 325mg tablet, delayed-release (Ecotrin) PO SCH (09:18)
[2020-10-08] MEDS: ceFAZolin/D5W- 1GM premix 50 ML IV SCH ×2 (09:18→16:09)
[2020-10-08] MEDS: linagliptin 5mg tablet PO SCH (09:18)
[2020-10-08] MEDS: lactobacillus rhamnosus 10,000 MMU CELLS/CAPSULE PO SCH ×2 (09:18→22:21)
[2020-10-08] MEDS: nicotine 14mg patch - 24hr TD SCH (09:18)
[2020-10-08] MEDS: insulin Lispro (HumaLOG) vial - multi-dose SQ SCH ×2 (09:23→13:31)
[2020-10-08] MEDS: folic acid 1mg/0.2ml inj IV SCH (12:30)
[2020-10-08] MEDS ORDERED: haloperidol lactate 5mg/ml inj IM ONE (17:30)
--- NOTE | 2020-10-08 17:30 | NUR ---
1700 accucheck not done D/T pt agitation. Will attempt again after pt calms down.
--- NOTE | 2020-10-08 18:05 | NUR ---
Problems reprioritized. Patient report given, questions answered & plan of care reviewed with BRITTANY Rodrigues.
--- NOTE | 2020-10-08 18:24 | NUR ---
pt continues to refuse accucheck
[2020-10-08] MEDS: atorvastatin 20mg tablet PO SCH (22:21)
[2020-10-08] MEDS: quetiapine 100mg tablet PO SCH (22:31)
[2020-10-08] MEDS: insulin glargine (Lantus) pen - multi-dose SQ SCH (22:34)
[2020-10-09] MEDS: ceFAZolin/D5W- 1GM premix 50 ML IV SCH ×3 (00:39→17:35)
[2020-10-09 06:25] LABS: HEMATOCRIT 26.2 % (42.0-52.0); MEAN CORPUSCULAR HEMOGLOBIN 32.7 PG (27.0-31.0); MEAN CORPUSCULAR HGB CONC 34.4 g/dL (33.0-36.5); MEAN PLATELET VOLUME 6.8 FL (7.4-10.4); PLATELET COUNT 226 X10'3 (140-440); RED BLOOD COUNT 2.76 X10'6 (4.70-6.10); RED CELL DISTRIBUTION WIDTH 15.6 % (11.5-14.5); WHITE BLOOD COUNT 6.1 X10'3 (4.5-11.0)
--- NOTE | 2020-10-09 06:30 | NUR ---
Problems reprioritized. Patient report given, questions answered & plan of care reviewed with JENNFIER. Addendum: 10/09/20 at 0650 by Jonnie Mazariegos RN Amended: Links added.
[2020-10-09 07:00] VITALS: BP 90/53
--- NOTE | 2020-10-09 07:05 | NUR ---
Patient in room [facility]. I have received report from BRITTANY Rodrigues and had the opportunity to ask questions and assume patient care.
[2020-10-09] MEDS: folic acid 1mg/0.2ml inj IV SCH (08:54)
[2020-10-09] MEDS: furosemide 40mg/4ml inj IV SCH ×2 (08:54→21:00)
[2020-10-09] MEDS: cholecalciferol (vitamin D3) 1,000 unit (25mcg) tablet PO SCH (08:55)
[2020-10-09] MEDS: nicotine 14mg patch - 24hr TD SCH (08:55)
[2020-10-09] MEDS: thiamine 100mg tablet PO SCH (08:55)
[2020-10-09] MEDS: linagliptin 5mg tablet PO SCH (08:55)
[2020-10-09] MEDS: gabapentin 300mg capsule PO SCH ×2 (08:56→21:00)
[2020-10-09] MEDS: NUT.TX.GLUC.INTOLER,LAC-FR,SOY (GLUCERNA) 237 ML PO SCH ×3 (08:56→19:57)
[2020-10-09] MEDS: lactobacillus rhamnosus 10,000 MMU CELLS/CAPSULE PO SCH ×2 (08:56→21:01)
[2020-10-09] MEDS: aspirin 325mg tablet, delayed-release (Ecotrin) PO SCH (08:56)
[2020-10-09] MEDS: carVEDilol 3.125mg tablet PO SCH ×2 (08:56→21:01)
[2020-10-09] MEDS: pantoprazole 40mg Tablet.DR PO SCH ×2 (08:56→21:01)
[2020-10-09] MEDS: famotidine 20mg tablet PO SCH ×2 (08:56→21:00)
[2020-10-09 11:00] VITALS: BP 166/63
--- NOTE | 2020-10-09 18:31 | NUR ---
Problems reprioritized. Patient report given, questions answered & plan of care reviewed with Андрей SOTO.
--- NOTE | 2020-10-09 18:40 | NUR ---
Patient in room [facility]. I have received report from JENNIFER SOTO and had the opportunity to ask questions and assume patient care.
[2020-10-09] MEDS: insulin Lispro (HumaLOG) vial - multi-dose SQ SCH (19:52)
[2020-10-09 20:00] VITALS: BP 128/78
[2020-10-09] MEDS: quetiapine 100mg tablet PO SCH (21:01)
[2020-10-09] MEDS: atorvastatin 20mg tablet PO SCH (21:01)
[2020-10-09] MEDS: apixaban 5mg tablet PO SCH (21:01)
[2020-10-09] MEDS: insulin glargine (Lantus) pen - multi-dose SQ SCH (23:08)
[2020-10-10] VITALS: BP 156/70
[2020-10-10] MEDS: ceFAZolin/D5W- 1GM premix 50 ML IV SCH ×4 (00:50→23:40)
[2020-10-10 01:35] VITALS: BP 113/57
--- NOTE | 2020-10-10 06:41 | NUR ---
Patient in room [facility]. I have received report from BRITTANY Chiang and had the opportunity to ask questions and assume patient care.
[2020-10-10] MEDS: normal saline 1000ml 1,000 ML IV SCH ×2 (06:44→23:38)
[2020-10-10 07:08] LABS: BASOPHILS % (AUTO) 0.6 % (0-1); EOSINOPHILS % (AUTO) 0.7 % (0-6); HEMATOCRIT 23.8 % (42.0-52.0); HEMOGLOBIN 8.1 g/dl (14.0-17.9); LYMPHOCYTES # (AUTO) 1.4 X10'3 (1.1-4.8); LYMPHOCYTES % (AUTO) 24.4 % (21-51); MEAN CORPUSCULAR HEMOGLOBIN 32.3 PG (27.0-31.0); MEAN CORPUSCULAR VOLUME 95.1 FL (78-98); MEAN PLATELET VOLUME 6.6 FL (7.4-10.4); MONOCYTES # (AUTO) 0.8 X10'3 (0-0.9); MONOCYTES % (AUTO) 14.3 % (2-12); NEUTROPHILS # (AUTO) 3.5 X10'3 (1.8-7.7); PLATELET COUNT 201 X10'3 (140-440); RED CELL DISTRIBUTION WIDTH 15.9 % (11.5-14.5); WHITE BLOOD COUNT 5.8 X10'3 (4.5-11.0)
[2020-10-10 07:30] LABS: ALBUMIN 1.4 G/DL (3.4-5.0); ANION GAP 5 (8-16); BLOOD UREA NITROGEN 18 MG/DL (7-18); CALCIUM 7.5 MG/DL (8.5-10.1); CHLORIDE 105 MMOL/L (99-107); CREATININE 1.06 MG/DL (0.60-1.10); GLUCOSE 162 MG/DL (70-104); POTASSIUM 3.4 MMOL/L (3.5-5.1); PREALBUMIN 5.5 MG/DL (19-36); SODIUM 137 MMOL/L (135-145); TOTAL CARBON DIOXIDE 26.8 MMOL/L (24-32); eGFR 71 ML/MIN
[2020-10-10] MEDS: NUT.TX.GLUC.INTOLER,LAC-FR,SOY (GLUCERNA) 237 ML PO SCH ×3 (08:00→19:00)
--- NOTE | 2020-10-10 09:10 | NUR ---
Pt attempted to get up to BSC independently dropped to his knees at the side of the bed. Pt had liquid stool all over the lower half of his body. Fall not witnessed but pt denies hitting any thing Denies pain. PT was called for assist up from the floor. VSS. Pt bathed and returned to bed with warm blanket.
[2020-10-10] MEDS: insulin Lispro (HumaLOG) vial - multi-dose SQ SCH (10:00)
[2020-10-10] MEDS: thiamine 100mg tablet PO SCH (10:01)
[2020-10-10] MEDS: cholecalciferol (vitamin D3) 1,000 unit (25mcg) tablet PO SCH (10:01)
[2020-10-10] MEDS: famotidine 20mg tablet PO SCH ×2 (10:01→20:33)
[2020-10-10] MEDS: folic acid 1mg/0.2ml inj IV SCH (10:01)
[2020-10-10] MEDS: lactobacillus rhamnosus 10,000 MMU CELLS/CAPSULE PO SCH ×2 (10:01→20:33)
[2020-10-10] MEDS: carVEDilol 3.125mg tablet PO SCH ×2 (10:01→20:33)
[2020-10-10] MEDS: apixaban 5mg tablet PO SCH ×2 (10:01→20:33)
[2020-10-10] MEDS: linagliptin 5mg tablet PO SCH (10:01)
[2020-10-10] MEDS: gabapentin 300mg capsule PO SCH ×2 (10:01→20:33)
[2020-10-10] MEDS: furosemide 40mg/4ml inj IV SCH ×2 (10:02→20:33)
[2020-10-10] MEDS: nicotine 14mg patch - 24hr TD SCH (10:13)
[2020-10-10] MEDS: pantoprazole 40mg Tablet.DR PO SCH ×2 (10:13→20:33)
[2020-10-10 11:00] VITALS: BP 102/52
[2020-10-10 11:49] VITALS: BP 80/35
--- NOTE | 2020-10-10 12:55 | NUR ---
Reassessment: Patient's diet has been advanced to SB6 however noted per dietary pt receiving CHO controlled chopped diet, not soft foods. D/w dietary to send appropriate meal trays per diet order. Pt with slight fluctuations in PO intake though averaging 75% PO intake of meals with 100% PO intake of ONS x 2. LBM 10/09. Pt remains A/O x 1 and confused, not appropriate for DM education. No additional nutrition intervention implemented at this time. Will continue to follow. Rec: 1. Continue SB6 diet with thin liquids per ST recs; monitor BG levels and need to resume CHO controlled diet 2. Glucerna TIDWM 3. Bowel care per rx 4. Weekly scaled weights 5. DM education deferred until pt appropriate, A1c 8.0% Addendum: 10/10/20 at [address] Amended: Links added.
[2020-10-10] MEDS: POTASSIUM BICARB 20meq eff tab 20 MEQ TABLET.EFF PO PRN ×2 (14:22→20:34)
--- NOTE | 2020-10-10 18:26 | NUR ---
Problems reprioritized. Patient report given, questions answered & plan of care reviewed with BRITTANY Bush.
--- NOTE | 2020-10-10 18:43 | NUR ---
Problems reprioritized. Patient report given, questions answered & plan of care reviewed with BRITTANY Chiang.
[2020-10-10 20:00] VITALS: BP 132/62
[2020-10-10] MEDS: atorvastatin 20mg tablet PO SCH (20:33)
[2020-10-10] MEDS: quetiapine 100mg tablet PO SCH (20:33)
[2020-10-10] MEDS: insulin glargine (Lantus) pen - multi-dose SQ SCH (22:35)
[2020-10-10] MEDS: LORazepam 2 mg/ml vial IV PRN (23:27)
[2020-10-11] VITALS: BP 139/62
--- NOTE | 2020-10-11 06:30 | NUR ---
Problems reprioritized. Patient report given, questions answered & plan of care reviewed with SYDNEE SOTO.
--- NOTE | 2020-10-11 06:36 | NUR ---
Patient in room [facility]. I have received report from BRITTANY Chiang and had the opportunity to ask questions and assume patient care.
[2020-10-11 07:00] VITALS: BP 135/49
[2020-10-11] MEDS: NUT.TX.GLUC.INTOLER,LAC-FR,SOY (GLUCERNA) 237 ML PO SCH ×2 (08:00→13:00)
[2020-10-11] MEDS: carVEDilol 3.125mg tablet PO SCH ×2 (08:00→21:24)
[2020-10-11] MEDS: cholecalciferol (vitamin D3) 1,000 unit (25mcg) tablet PO SCH (08:00)
[2020-10-11] MEDS: linagliptin 5mg tablet PO SCH (08:00)
[2020-10-11] MEDS: apixaban 5mg tablet PO SCH ×2 (08:00→21:24)
[2020-10-11] MEDS: gabapentin 300mg capsule PO SCH ×2 (08:00→21:24)
[2020-10-11] MEDS: lactobacillus rhamnosus 10,000 MMU CELLS/CAPSULE PO SCH ×2 (08:00→21:24)
[2020-10-11] MEDS: pantoprazole 40mg Tablet.DR PO SCH ×2 (08:00→21:24)
[2020-10-11] MEDS: famotidine 20mg tablet PO SCH ×2 (08:00→21:25)
[2020-10-11] MEDS: thiamine 100mg tablet PO SCH (08:00)
[2020-10-11] MEDS ORDERED: sodium bicarbonate (8.4%) 1 mEq/ml syringe ONE (09:00)
[2020-10-11] MEDS ORDERED: epiNEPHrine 0.1mg/ml 10ml syringe ONE (09:00)
[2020-10-11 09:19] LABS: HEMATOCRIT 26.3 % (42.0-52.0); MEAN CORPUSCULAR HEMOGLOBIN 32.5 PG (27.0-31.0); MEAN CORPUSCULAR HGB CONC 34.1 g/dL (33.0-36.5); MEAN CORPUSCULAR VOLUME 95.3 FL (78-98); MEAN PLATELET VOLUME 6.5 FL (7.4-10.4); PLATELET COUNT 206 X10'3 (140-440); RED BLOOD COUNT 2.75 X10'6 (4.70-6.10); RED CELL DISTRIBUTION WIDTH 15.8 % (11.5-14.5); WHITE BLOOD COUNT 5.6 X10'3 (4.5-11.0)
[2020-10-11] MEDS: folic acid 1mg/0.2ml inj IV SCH (09:50)
[2020-10-11] MEDS: ceFAZolin/D5W- 1GM premix 50 ML IV SCH (09:50)
[2020-10-11] MEDS: furosemide 40mg/4ml inj IV SCH ×2 (09:50→21:23)
[2020-10-11] MEDS: insulin Lispro (HumaLOG) vial - multi-dose SQ SCH ×3 (09:54→20:09)
[2020-10-11] MEDS: nicotine 14mg patch - 24hr TD SCH (09:56)
[2020-10-11 11:00] VITALS: BP 132/44
[2020-10-11 18:00] VITALS: BP 113/51
[2020-10-11] MEDS ORDERED: NUT.TX.GLUC.INTOLER,LAC-FR,SOY (GLUCERNA) 237 ML PO SCH (18:00)
--- NOTE | 2020-10-11 18:53 | NUR ---
Problems reprioritized. Patient report given, questions answered & plan of care reviewed with BRITTANY Chiang.
[2020-10-11] MEDS ORDERED: diphenhydrAMINE 25mg capsule PO PRN (18:55)
--- NOTE | 2020-10-11 18:58 | NUR ---
Patient in room [facility]. I have received report from SYDNEE SOTO and had the opportunity to ask questions and assume patient care.
[2020-10-11] MEDS: atorvastatin 20mg tablet PO SCH (21:24)
[2020-10-11] MEDS: quetiapine 100mg tablet PO SCH (21:25)
[2020-10-11] MEDS: insulin glargine (Lantus) pen - multi-dose SQ SCH (22:54)
[2020-10-11] MEDS: LORazepam 2 mg/ml vial IV PRN (23:39)
--- NOTE | 2020-10-11 23:45 | NUR ---
PATIENT WAS TRYING TO GET OUT OF BED, RESTLESS AND ANXIOUS, ATIVAN 1 MG IV ORDERED.
[2020-10-12] VITALS: BP 108/59
[2020-10-12 00:05] VITALS: BP 108/59
--- NOTE | 2020-10-12 01:00 | NUR ---
PATIENT CALMER AT THIS TIME.
--- NOTE | 2020-10-12 02:30 | NUR ---
NURSING AID, A SITTER TO THE NEXT BED CALLED FOR HELP PATIENT WAS NOT RESPONDING WHEN CALLED NOT BREATHING, NO PULSE AND CALLED FOR CODE BLUE.
--- NOTE | 2020-10-12 02:55 | NUR ---
PATIENT WAS PRONOUNCED BY DR. GALINDO, AFTER CPR WAS DONE AND EMERGENCY DRUGS WERE GIVEN BUT TO NO AVAIL.
--- NOTE | 2020-10-12 03:10 | NUR ---
DR RASHID WAS HERE AND WAS AWARE OF PATIENT'S , AND NURSING MEDIA RELATIONS MANAGER ROC SOTO WAS HERE DURING THE CODE.
--- NOTE | 2020-10-12 04:00 | NUR ---
PATIENT'S SON ANGELES WAS HERE AFTER DR. GALINDO CALLED HIM AND WAS INFORMED OF HIS FATHER'S .
--- NOTE | 2020-10-12 05:30 | NUR ---
[employer] WAS CALLED AND TALKED TO LUAN JIMENEZ WITH REFERENCE NO. [phone].
--- NOTE | 2020-10-12 05:45 | NUR ---
CALLED [facility] [employer] TO DIRECT ENTRY MIDWIFE THE BODY.
--- NOTE | 2020-10-12 07:00 | NUR ---
PATIENT'S BODY WAS PICKED UP BY [facility]. PATIENT'S BELONGINGS WAS GIVEN TO MEGA REYNOSO.
--- NOTE | 2020-10-13 15:58 | NUR ---
Called Son Jonh at [phone] and told him we have his fathers phone. Jonh stated he will come by and product picker [employer] phone in a black case with phone number [phone] taped to the back of phone. The phone is a the nurses station with the secretary to the vice president,
[2020-10-15] MEDS ORDERED: ARIPIPRAZOLE 10 MG TABLET PO SCH (08:00)
[2020-10-19] MEDS ORDERED: aripiprazole 400mg suspension ER syringe IM SCH (10:00)
== END 2020-10-12 07:20 | DRG 720 ==
LOC: ER 22:13 → ED HOLD 09-22 08:02 → EDBEDREQ 09-22 10:19 → ICU 2S 09-22 12:10 → PCU 3S 09-28 14:29 → SUR 3N 10-02 14:28
PROVIDERS: ADMIT Internal Medicine Critical Care Medicine; ATTEND Internal Medicine Critical Care Medicine
PROC: 02HV33Z Insertion of Infusion Device into Superior Vena Cava, Percutaneous Approach (ICD-10-PCS; 2020-09-23)
PROC: B548ZZA Ultrasonography of Superior Vena Cava, Guidance (ICD-10-PCS; 2020-09-23)
PROC: 30233N1 Transfusion of Nonautologous Red Blood Cells into Peripheral Vein, Percutaneous Approach (ICD-10-PCS; 2020-10-03)
PROC: 0DB48ZX Excision of Esophagogastric Junction, Via Natural or Artificial Opening Endoscopic, Diagnostic (ICD-10-PCS; 2020-10-07)
PROC: 0DB68ZX Excision of Stomach, Via Natural or Artificial Opening Endoscopic, Diagnostic (ICD-10-PCS; 2020-10-07)
PROC: 0BH18EZ Insertion of Endotracheal Airway into Trachea, Via Natural or Artificial Opening Endoscopic (ICD-10-PCS; principal; 2020-10-12)
PROC: 5A12012 Performance of Cardiac Output, Single, Manual (ICD-10-PCS; 2020-10-12)
DX: A40.9 Streptococcal sepsis, unspecified (principal); I21.4 Non-ST elevation (NSTEMI) myocardial infarction; N17.0 Acute kidney failure with tubular necrosis; E87.4 Mixed disorder of acid-base balance; I11.0 Hypertensive heart disease with heart failure; R65.21 Severe sepsis with septic shock; R57.0 Cardiogenic shock; I50.9 Heart failure, unspecified; E11.40 Type 2 diabetes mellitus with diabetic neuropathy, unspecified; D62 Acute posthemorrhagic anemia; J18.9 Pneumonia, unspecified organism; G92 Toxic encephalopathy; I82.621 Acute embolism and thrombosis of deep veins of right upper extremity; E11.65 Type 2 diabetes mellitus with hyperglycemia; E66.01 Morbid (severe) obesity due to excess calories; E78.5 Hyperlipidemia, unspecified; F10.239 Alcohol dependence with withdrawal, unspecified; F15.10 Other stimulant abuse, uncomplicated; F17.210 Nicotine dependence, cigarettes, uncomplicated; F31.9 Bipolar disorder, unspecified; E87.1 Hypo-osmolality and hyponatremia; I42.9 Cardiomyopathy, unspecified; J43.9 Emphysema, unspecified; E87.0 Hyperosmolality and hypernatremia; M79.641 Pain in right hand; R74.01 Elevation of levels of liver transaminase levels; K92.2 Gastrointestinal hemorrhage, unspecified; K29.70 Gastritis, unspecified, without bleeding; E87.6 Hypokalemia; W06.XXXA Fall from bed, initial encounter; Y92.230 Patient room in hospital as the place of occurrence of the external cause; K22.8 Other specified diseases of esophagus; X58.XXXA Exposure to other specified factors, initial encounter; K44.9 Diaphragmatic hernia without obstruction or gangrene; N39.0 Urinary tract infection, site not specified; S63.268A Dislocation of metacarpophalangeal joint of other finger, initial encounter; R09.02 Hypoxemia; Z20.822 Contact with and (suspected) exposure to COVID-19; Z68.42 Body mass index [BMI] 45.0-49.9, adult; Z78.1 Physical restraint status; Z88.5 Allergy status to narcotic agent; Z79.899 Other long term (current) drug therapy; Z79.82 Long term (current) use of aspirin; Y93.89 Activity, other specified; Y92.89 Other specified places as the place of occurrence of the external cause; Y99.8 Other external cause status
CPT/HCPCS: 36415; 36430; 36573; 36600; 43239; 70470; 71045; 71250; 73120; 73130; 74018; 74176; 76770; 76881; 80048; 80053; 80061; 80202; 80305; 81001; 82140; 82272; 82570; 82803; 82948; 83036; 83605; 83735; 83880; 84100; 84132; 84134; 84145; 84156; 84300; 84443; 84484; 85007; 85018; 85025; 85027; 85610; 85730; 86885; 86900; 86901; 86920; 87040; 87077; 87081; 87186; 87207; 87635; 92508; 92616; 92950; 93005; 93306; 93971; 94640; 94760; 94799; 97110; 97112; 97116; 97161; 97530; 97535; 99152; 99285; A4620; A7015; C9803; G0378; J0171; J0456; J0690; J0696; J1630; J1644; J1650; J1815; J1940; J2060; J2250; J2543; J2930; J3010; J3370; J3411; J3475; J3480; J3490; J7030; J7040; J7050; J7070; J7120; P9016; P9045; Q9967